=== PATIENT | male | born 1940 | race Caucasian/White ===

== ENCOUNTER 2016-12-31 21:21 | Emergency (ER) | payer OTHER ==
[~2016-12-31] VITALS: Ht 172.7 cm; Wt 134.8 kg
[~2016-12-31 21:21] MED LIST: ASPIR 8181 M1 PO; ATARAX,VISTARIL25 MG PO; ATENOLOL50 MG PO; ATORVASTATIN; BENTYL20 MG PO; BUSPAR5 MG PO; BUSPIRONE HCL5 MG PO; CARDURA4 MG PO; CATAPRES0.3 MG PO; CHLORTHALIDONE25 MG; CHLORTHALIDONE25 MG PO; CLONIDINE HCL0.3 MG; CLONIDINE HCL0.3 MG PO; COUMADIN PO; COUMADIN2.5 MG PO; COUMADIN4 MG PO; COUMADIN7.5 MG PO; CYMBALTA60 MG PO; Cardura PO; Catapres PO; Coumadin,Jantoven PO; DOXAZOSIN MESYLA4 MG; DOXAZOSIN MESYLA4 MG PO; ERGOCALCIF50000 UNIT PO; FINASTERIDE5 MG; FINASTERIDE5 MG PO; FLUOXETINE HCL20 MG; HUMALOG100 UNIT/1 SC; HUMALOG100 UNIT/2 SQ; HYDROCODON-ACE1 EAC7; HYDROXYZINE PAM25 MG PO; HYGROTON25 MG PO; JANTOVEN1 MG PO; Keflex PO; LANTUS (UNITS)1 UNIT SC; LANTUS 10100 UNITS/ SC; LANTUS 3 M100 UNITS1; LANTUS 3 M100 UNITS1 SC; LASIX40 MG PO; LIPITOR20 MG PO; LISINOPRIL10 MG; LISINOPRIL10 MG PO; METOPROLOL SUCC25 MG PO; NITROSTAT0.4 MG SL; NON-ASPIRIN PA325 MG PO; NOVOLOG FLEXPEN; NOVOLOG PE100 UNITS/ SC; PRINIVIL10 MG PO; PRINIVIL20 MG PO; PROAIR HFA8.5 GM; PROSCAR5 MG PO; PROZAC10 MG PO; PROZAC20 MG PO; PROzac PO; Proscar PO; Pyridoxine,Vitamin B PO; RISPERDAL0.5 MG PO; RISPERIDONE0.5 MG PO; ROCALTROL0.25 MCG PO; SILVADENE20 GM TP; ST. JOSEPH ASPI81 MG PO; TOPROL XL25 MG PO; TRAMADOL HCL50 MG PO; TYLENOL REGULA325 MG PO; ULTRAM50 MG PO; VICODIN 5-3001 EACH PO; VITAMIN B-6 PO; VITAMIN B-6200 MG PO; VITAMIN B6; VITAMIN B6 PO; WARFARIN SODIU2.5 MG PO; ZESTRIL10 MG PO; ZESTRIL20 MG PO; Zestril,Prinivil PO
[2016-12-31 22:05] LABS: HEMATOCRIT 33.6 % (38.0-50.0); MCH 30.7 PG (29.0-34.0); MCHC 32.4 G/DL (30.0-36.0); MCV 94.6 FL (86-99); PLATELET COUNT 164 K/uL (156-360); RBC DIS.WIDTH-CV 13.5 % (11.8-14.6); RBC DIS.WIDTH-SD 47.8 % (39-53); RED BLOOD COUNT 3.55 M/uL (4.00-5.50); WHITE BLOOD COUNT 7.6 K/uL (4.1-10.2)
[2016-12-31 22:15] LABS: CHLORIDE 107 mEq/L (99-109); SODIUM 141 mEq/L (136-147)
[2016-12-31 22:17] LABS: GLUCOSE 180 mg/dL (70-99)
[2016-12-31 22:18] LABS: ANION GAP 8 MEQ/L (2-14)
[2016-12-31 22:21] LABS: GFR ESTIMATE (CALCULATED) 42 mL/min/
[2016-12-31 22:22] LABS: UREA NITROGEN (BUN) 27 mg/dL (9-23)
[2016-12-31 22:35] LABS: PROTHROMBIN TIME 78.3 (9.2-11.2)
[2016-12-31 22:37] LABS: INTER. NORMALIZED RATIO 7.2
[2016-12-31 23:53] VITALS: BP 148/60
== END 2016-12-31 23:53 | disposition home or self-care (01) ==
LOC: EME 21:21
PROVIDERS: Emergency Medicine
DX: R79.1 Abnormal coagulation profile (principal); E11.9 Type 2 diabetes mellitus without complications; E78.5 Hyperlipidemia, unspecified; I10 Essential (primary) hypertension; Z86.718 Personal history of other venous thrombosis and embolism; Z86.711 Personal history of pulmonary embolism; Z79.4 Long term (current) use of insulin; Z79.01 Long term (current) use of anticoagulants; Z79.82 Long term (current) use of aspirin; Z87.891 Personal history of nicotine dependence
CPT/HCPCS: 80048; 85027; 85610; 99281; 99284

== ENCOUNTER 2017-01-03 13:53 | Emergency (ER) | payer OTHER ==
[~2017-01-03] VITALS: Ht 182.9 cm; Wt 129.1 kg
[2017-01-03 14:25] LABS: HEMATOCRIT 36.1 % (38.0-50.0); MCH 30.4 PG (29.0-34.0); MCHC 31.9 G/DL (30.0-36.0); MCV 95.5 FL (86-99); MEAN PLAT.VOLUME 9.3 uM^3 (9.0-12.4); PLATELET COUNT 178 K/uL (156-360); RBC DIS.WIDTH-CV 13.7 % (11.8-14.6); RBC DIS.WIDTH-SD 48.3 % (39-53); RED BLOOD COUNT 3.78 M/uL (4.00-5.50); WHITE BLOOD COUNT 7.8 K/uL (4.1-10.2)
[2017-01-03 14:36] LABS: CHLORIDE 105 mEq/L (99-109); POTASSIUM 4.3 mEq/L (3.7-5.4); SODIUM 142 mEq/L (136-147)
[2017-01-03 14:38] LABS: GLUCOSE 169 mg/dL (70-99); PTT 28.6 (25-32)
[2017-01-03 14:40] LABS: ANION GAP 9 MEQ/L (2-14); INTER. NORMALIZED RATIO 1.5; PROTHROMBIN TIME 15.6 (9.2-11.2)
[2017-01-03 14:42] LABS: GFR ESTIMATE (CALCULATED) 39 mL/min/
[2017-01-03 14:43] LABS: UREA NITROGEN (BUN) 27 mg/dL (9-23)
[2017-01-03] MEDS ORDERED: MYCOSTATIN15 GM PO (15:03)
[2017-01-03 15:17] VITALS: BP 121/84
== END 2017-01-03 15:18 | disposition home or self-care (01) ==
LOC: EME 13:53
PROVIDERS: Emergency Medicine
DX: R21 Rash and other nonspecific skin eruption (principal); L29.9 Pruritus, unspecified; Z79.01 Long term (current) use of anticoagulants; G89.29 Other chronic pain; E11.9 Type 2 diabetes mellitus without complications; E78.5 Hyperlipidemia, unspecified; I10 Essential (primary) hypertension; Z87.442 Personal history of urinary calculi; Z86.718 Personal history of other venous thrombosis and embolism
CPT/HCPCS: 80048; 85027; 85610; 85730; 99281; 99285

== ENCOUNTER 2017-06-22 21:25 | Inpatient (IN) | payer OTHER ==
[~2017-06-22] VITALS: Ht 180.3 cm; Wt 128.6 kg
[~2017-06-22 21:25] MED LIST changes: +MYCOSTATIN15 GM PO
[2017-06-22 22:43] LABS: HEMATOCRIT 35.8 % (38.0-50.0); MCH 30.5 PG (29.0-34.0); MCHC 32.4 G/DL (30.0-36.0); MCV 94.2 FL (86-99); MEAN PLAT.VOLUME 10.1 uM^3 (9.0-12.4); PLATELET COUNT 239 K/uL (156-360); RBC DIS.WIDTH-CV 13.4 % (11.8-14.6); RBC DIS.WIDTH-SD 46.5 % (39-53); WHITE BLOOD COUNT 6.3 K/uL (4.1-10.2)
[2017-06-22 22:47] LABS: INTER. NORMALIZED RATIO 1.4; PROTHROMBIN TIME 15.8 SEC (10.2-12.9)
[2017-06-22 22:48] LABS: CHLORIDE 106 mEq/L (99-109); POTASSIUM 4.5 mEq/L (3.7-5.4); SODIUM 141 mEq/L (136-147)
[2017-06-22 22:49] LABS: PTT 30.8 SEC (25-37)
[2017-06-22 22:50] LABS: GLUCOSE 139 mg/dL (70-99)
[2017-06-22 22:51] LABS: ANION GAP 7 MEQ/L (2-14)
[2017-06-22 22:52] LABS: TOTAL BILIRUBIN 0.5 mg/dL (0.0-1.0)
[2017-06-22 22:53] LABS: ALKALINE PHOSPHATASE 55 IU/L (3-129)
[2017-06-22 22:54] LABS: GFR ESTIMATE (CALCULATED) 39 mL/min/
[2017-06-22 22:55] LABS: UREA NITROGEN (BUN) 32 mg/dL (9-23)
[2017-06-22 22:57] LABS: LIPASE 32 U/L (1.0-51.0)
[2017-06-22 23:11] LABS: TROP-I INTERPRETATION NEGATIVE; TROPONIN-I 0.04 ng/mL (0.0-0.30)
[2017-06-23 01:18] LABS: ADD MIUA? YES; BILIRUBIN NEGATIVE; BLOOD SMALL; COLOR YELLOW ((YELLOW)); GLUCOSE (STRIP) NEGATIVE; KETONES NEGATIVE; LEUKOCYTES NEGATIVE; NITRITE NEGATIVE; PROTEIN (STRIP) 30; SPECIFIC GRAVITY 1.011 (1.000-1.030); UROBILINOGEN 0.2 MG/DL (0.2-1.0)
[2017-06-23 01:29] LABS: BACTERIA NONE SEEN /HPF; EPITHELIAL CELLS NONE SEEN /HPF; MUCUS NONE SEEN /LPF; RED BLOOD CELLS 0-5 /HPF (0-5); UCUL ADDED? NO; WHITE BLOOD CELLS 0-5 /HPF (0-5)
[2017-06-23 03:44] LABS: POINT-OF-CARE METER ID UU13113702
[2017-06-23 06:19] VITALS: BP 187/81
[2017-06-23 07:10] VITALS: BP 163/69
[2017-06-23 08:32] LABS: POINT-OF-CARE METER ID UU14162513
[2017-06-23] MEDS ORDERED: ELIQUIS5 MG PO (08:58)
[2017-06-23 10:47] VITALS: BP 164/70
[2017-06-23 12:29] LABS: POINT-OF-CARE METER ID UU14162513
[2017-06-23 17:41] LABS: POINT-OF-CARE METER ID UU14162513
[2017-06-23 21:00] VITALS: BP 174/75
[2017-06-23 21:13] LABS: POINT-OF-CARE METER ID UU13113700
[2017-06-23 23:42] VITALS: BP 114/76
[2017-06-24 08:00] VITALS: BP 185/84
[2017-06-24 11:55] VITALS: BP 148/66
[2017-06-24 16:18] VITALS: BP 189/90
[2017-06-24 19:00] VITALS: BP 138/68
[2017-06-24 21:09] LABS: POINT-OF-CARE METER ID UU13113700
[2017-06-25] VITALS (7 sets, daily range): BP systolic 121–167; BP diastolic 59–75
[2017-06-25 08:10] LABS: ANION GAP 5 MEQ/L (2-14); CHLORIDE 100 MEQ/L (99-109); GFR ESTIMATE (CALCULATED) 42 mL/min/; GLUCOSE 172 mg/dL (70-99); POTASSIUM 4.8 MEQ/L (3.7-5.4); SAMPLE HEMOLYSIS CHECK 0; SAMPLE ICTERIC CHECK 0; SAMPLE LIPEMIA CHECK 0; SODIUM 135 MEQ/L (136-147); UREA NITROGEN (BUN) 28 mg/dL (9-23)
[2017-06-25 12:26] LABS: POINT-OF-CARE METER ID UU13113700
[2017-06-25 17:01] LABS: POINT-OF-CARE METER ID UU13113831
[2017-06-25 21:39] LABS: POINT-OF-CARE METER ID UU14208750
[2017-06-26 04:09] VITALS: BP 126/63
[2017-06-26 06:09] LABS: POINT-OF-CARE METER ID UU14208750
[2017-06-26 07:30] VITALS: BP 171/69
[2017-06-26 07:38] LABS: HEMATOCRIT 37.1 % (38.0-50.0); MCH 31.9 PG (29.0-34.0); MCHC 32.9 G/DL (30.0-36.0); MCV 96.9 FL (86-99); PLATELET COUNT 217 K/uL (156-360); RBC DIS.WIDTH-CV 13.5 % (11.8-14.6); RBC DIS.WIDTH-SD 48.4 % (39-53); RED BLOOD COUNT 3.83 M/uL (4.00-5.50); WHITE BLOOD COUNT 5.7 K/uL (4.1-10.2)
[2017-06-26 08:08] LABS: ANION GAP 6 MEQ/L (2-14); CHLORIDE 100 MEQ/L (99-109); GFR ESTIMATE (CALCULATED) 35 mL/min/; GLUCOSE 126 mg/dL (70-99); POTASSIUM 4.9 MEQ/L (3.7-5.4); SAMPLE HEMOLYSIS CHECK 0; SAMPLE ICTERIC CHECK 0; SAMPLE LIPEMIA CHECK 0; SODIUM 139 MEQ/L (136-147); UREA NITROGEN (BUN) 35 mg/dL (9-23)
[2017-06-26 11:20] VITALS: BP 142/66
[2017-06-26 11:33] LABS: POINT-OF-CARE METER ID UU14162508
[2017-06-26] MEDS ORDERED: TAMSULOSIN HCL0.4 MG PO (12:07)
[2017-06-26] MEDS ORDERED: HYGROTON25 MG PO (12:07)
[2017-06-26] MEDS ORDERED: LEVEMIR100 UNIT/2 SC (12:07)
[2017-06-26] MEDS ORDERED: NOVOLOG PE100 UNITS/ SC (12:07)
[2017-06-26 15:32] VITALS: BP 134/63
[2017-06-26 16:14] LABS: POINT-OF-CARE METER ID UU14162508
== END 2017-06-26 20:05 | DRG 305 ==
LOC: EME 21:25 → EDOF 06-23 05:14 → 5WEST 06-23 05:14 → EDOF 06-23 05:14 → ENRESERV 06-23 05:17 → 5WEST 06-23 06:05 → ENRESERV 06-23 14:19 → CANRESERV 06-23 14:19 → 5WEST 06-24 07:46 → ENRESERV 06-25 16:20 → 2EAST 06-25 20:20
PROVIDERS: Emergency Medicine; Hospitalist; Pediatrics; Physician Assistant
DX: I16.0 Hypertensive urgency (principal); I66.9 Occlusion and stenosis of unspecified cerebral artery; I74.9 Embolism and thrombosis of unspecified artery; I48.0 Paroxysmal atrial fibrillation; R33.8 Other retention of urine; I27.2 Other secondary pulmonary hypertension; E78.5 Hyperlipidemia, unspecified; E11.65 Type 2 diabetes mellitus with hyperglycemia; E11.40 Type 2 diabetes mellitus with diabetic neuropathy, unspecified; Z68.41 Body mass index [BMI] 40.0-44.9, adult; I12.9 Hypertensive chronic kidney disease with stage 1 through stage 4 chronic kidney disease, or unspecified chronic kidney disease; E11.22 Type 2 diabetes mellitus with diabetic chronic kidney disease; N18.3 Chronic kidney disease, stage 3 (moderate); N40.1 Benign prostatic hyperplasia with lower urinary tract symptoms; E66.01 Morbid (severe) obesity due to excess calories; J32.0 Chronic maxillary sinusitis; G47.33 Obstructive sleep apnea (adult) (pediatric); I65.21 Occlusion and stenosis of right carotid artery; N28.1 Cyst of kidney, acquired; K57.90 Diverticulosis of intestine, part unspecified, without perforation or abscess without bleeding; I87.2 Venous insufficiency (chronic) (peripheral); I87.8 Other specified disorders of veins; Z79.01 Long term (current) use of anticoagulants; Z79.4 Long term (current) use of insulin; Z79.82 Long term (current) use of aspirin; Z79.899 Other long term (current) drug therapy; Z85.828 Personal history of other malignant neoplasm of skin; Z85.841 Personal history of malignant neoplasm of brain; Z86.711 Personal history of pulmonary embolism; Z86.718 Personal history of other venous thrombosis and embolism; Z87.442 Personal history of urinary calculi; Z87.891 Personal history of nicotine dependence; Z91.19 Patient's noncompliance with other medical treatment and regimen; Z91.5 Personal history of self-harm
CPT/HCPCS: 70450; 70496; 70498; 74176; 80053; 80069; 81003; 82948; 83605; 83690; 84484; 85027; 85610; 85730; 86850; 86900; 86901; 93005; 97530 GO; 99281; 99285; G8978 GP CM; G8979 GP CL; G8987 CK; G8988 GO CJ; J1815; J2270; J2405; J3010; J7030

== ENCOUNTER 2017-08-16 22:15 | Emergency (ER) | payer OTHER ==
[~2017-08-16] VITALS: Ht 180.3 cm; Wt 124.5 kg
[~2017-08-16 22:15] MED LIST changes: +ELIQUIS5 MG PO; +LEVEMIR100 UNIT/2 SC; +TAMSULOSIN HCL0.4 MG PO
[2017-08-16 22:54] LABS: HEMATOCRIT 37.3 % (38.0-50.0); MCHC 32.7 G/DL (30.0-36.0); MCV 91.6 FL (86-99); MEAN PLAT.VOLUME 9.7 uM^3 (9.0-12.4); PLATELET COUNT 180 K/uL (156-360); RBC DIS.WIDTH-CV 12.9 % (11.8-14.6); RBC DIS.WIDTH-SD 43.5 % (39-53); RED BLOOD COUNT 4.07 M/uL (4.00-5.50); WHITE BLOOD COUNT 8.7 K/uL (4.1-10.2)
[2017-08-16 23:04] LABS: CHLORIDE 106 mEq/L (99-109); INTER. NORMALIZED RATIO 1.6; POTASSIUM 4.4 mEq/L (3.7-5.4); PROTHROMBIN TIME 18.1 SEC (10.2-12.9); SODIUM 139 mEq/L (136-147)
[2017-08-16 23:05] LABS: GLUCOSE 343 mg/dL (70-99)
[2017-08-16 23:07] LABS: ANION GAP 8 MEQ/L (2-14); PTT 32.2 SEC (25-37)
[2017-08-16 23:09] LABS: GFR ESTIMATE (CALCULATED) 39 mL/min/
[2017-08-16 23:10] LABS: UREA NITROGEN (BUN) 35 mg/dL (9-23)
[2017-08-17 00:05] LABS: ADD MIUA? NO; BILIRUBIN NEGATIVE; BLOOD NEGATIVE; COLOR YELLOW ((YELLOW)); GLUCOSE (STRIP) >=500; KETONES NEGATIVE; LEUKOCYTES NEGATIVE; NITRITE NEGATIVE; PROTEIN (STRIP) 30; SPECIFIC GRAVITY 1.016 (1.000-1.030); UCUL ADDED? NO; UROBILINOGEN 0.2 MG/DL (0.2-1.0)
[2017-08-17 02:25] VITALS: BP 178/72
[2017-08-17] MEDS ORDERED: XARELTO20 MG PO (19:15)
== END 2017-08-17 02:25 | disposition home or self-care (01) ==
LOC: EME → EDBD 22:15 → EME 22:15
PROVIDERS: Emergency Medicine
DX: S70.01XA Contusion of right hip, initial encounter (principal); S80.02XA Contusion of left knee, initial encounter; S09.90XA Unspecified injury of head, initial encounter; E11.65 Type 2 diabetes mellitus with hyperglycemia; W18.30XA Fall on same level, unspecified, initial encounter; I12.9 Hypertensive chronic kidney disease with stage 1 through stage 4 chronic kidney disease, or unspecified chronic kidney disease; E11.22 Type 2 diabetes mellitus with diabetic chronic kidney disease; N18.9 Chronic kidney disease, unspecified; I48.91 Unspecified atrial fibrillation; Z79.01 Long term (current) use of anticoagulants; Z79.4 Long term (current) use of insulin; Z86.718 Personal history of other venous thrombosis and embolism; E78.5 Hyperlipidemia, unspecified; F32.9 Major depressive disorder, single episode, unspecified; F41.9 Anxiety disorder, unspecified; Z88.0 Allergy status to penicillin; Z87.891 Personal history of nicotine dependence
CPT/HCPCS: 70450; 73502; 73562; 73564; 80048; 81003; 85027; 85610; 85730; 93005; J7030

== ENCOUNTER 2017-08-17 16:32 | Inpatient (IN) | payer OTHER ==
[~2017-08-17] VITALS: Ht 182.9 cm; Wt 136.5 kg
[2017-08-17 17:21] LABS: HEMATOCRIT 39.6 % (38.0-50.0); MCHC 33.6 G/DL (30.0-36.0); MCV 89.2 FL (86-99); MEAN PLAT.VOLUME 9.9 uM^3 (9.0-12.4); PLATELET COUNT 190 K/uL (156-360); RBC DIS.WIDTH-SD 42.4 % (39-53); RED BLOOD COUNT 4.44 M/uL (4.00-5.50); WHITE BLOOD COUNT 10.5 K/uL (4.1-10.2)
[2017-08-17 17:29] LABS: CHLORIDE 106 mEq/L (99-109); POTASSIUM 4.3 mEq/L (3.7-5.4); SODIUM 139 mEq/L (136-147)
[2017-08-17 17:31] LABS: GLUCOSE 236 mg/dL (70-99)
[2017-08-17 17:32] LABS: ANION GAP 10 MEQ/L (2-14)
[2017-08-17 17:33] LABS: TOTAL BILIRUBIN 0.7 mg/dL (0.0-1.0)
[2017-08-17 17:34] LABS: ALKALINE PHOSPHATASE 56 IU/L (3-129)
[2017-08-17 17:35] LABS: GFR ESTIMATE (CALCULATED) 48 mL/min/
[2017-08-17 17:36] LABS: UREA NITROGEN (BUN) 25 mg/dL (9-23)
[2017-08-17 18:26] LABS: C-REACTIVE PROTEIN 8.4 MG/L (0-10)
[2017-08-17] MEDS ORDERED: XARELTO20 MG PO (19:15)
[2017-08-17 23:41] LABS: POINT-OF-CARE METER ID UU13113774
[2017-08-18] VITALS (7 sets, daily range): BP systolic 119–210; BP diastolic 59–80
[2017-08-18 06:31] LABS: POINT-OF-CARE METER ID UU13113725
[2017-08-18 11:43] LABS: POINT-OF-CARE METER ID UU13113725
[2017-08-18 17:02] LABS: POINT-OF-CARE METER ID UU13113774
[2017-08-18 20:59] LABS: POINT-OF-CARE METER ID UU13113774
[2017-08-19 03:42] VITALS: BP 97/50
[2017-08-19 05:47] LABS: POINT-OF-CARE METER ID UU13113774
[2017-08-19 06:19] LABS: HEMATOCRIT 33.6 % (38.0-50.0); MCH 30.4 PG (29.0-34.0); MCV 92.1 FL (86-99); MEAN PLAT.VOLUME 10.3 uM^3 (9.0-12.4); PLATELET COUNT 167 K/uL (156-360); RBC DIS.WIDTH-CV 13.6 % (11.8-14.6); RED BLOOD COUNT 3.65 M/uL (4.00-5.50); WHITE BLOOD COUNT 9.6 K/uL (4.1-10.2)
[2017-08-19 06:37] LABS: ANION GAP 8 MEQ/L (2-14); CHLORIDE 102 MEQ/L (99-109); GLUCOSE 194 mg/dL (70-99); POTASSIUM 4.9 MEQ/L (3.7-5.4); SAMPLE HEMOLYSIS CHECK 0; SAMPLE ICTERIC CHECK 0; SAMPLE LIPEMIA CHECK 0; SODIUM 136 MEQ/L (136-147)
[2017-08-19 06:40] LABS: GFR ESTIMATE (CALCULATED) 33 mL/min/; UREA NITROGEN (BUN) 38 mg/dL (9-23)
[2017-08-19 07:40] VITALS: BP 115/55
[2017-08-19 11:35] LABS: POINT-OF-CARE METER ID UU13113774
[2017-08-19 15:12] VITALS: BP 99/47
[2017-08-19 15:31] VITALS: BP 102/60
[2017-08-19 15:59] LABS: POINT-OF-CARE METER ID UU13113774
[2017-08-19 20:38] VITALS: BP 145/62
[2017-08-19 21:30] VITALS: BP 115/64
[2017-08-19 21:31] LABS: POINT-OF-CARE METER ID UU13113774
[2017-08-20] VITALS (8 sets, daily range): BP systolic 111–148; BP diastolic 59–92
[2017-08-20 05:26] LABS: EOSINOPHIL (%) 5.6 % (0-5); EOSINOPHIL COUNT 0.6 K/uL (0-0.3); HEMATOCRIT 32.9 % (38.0-50.0); IMMATURE GRANULOCYTE (%) 0.2 % (0.0-0.7); INSTRUMENT ABS NEUTROPHIL CT 8.1 K/uL; LYMPHOCYTE COUNT 0.8 K/uL (1.0-2.8); MCH 30.7 PG (29.0-34.0); MCHC 33.4 G/DL (30.0-36.0); MCV 91.9 FL (86-99); MEAN PLAT.VOLUME 10.4 uM^3 (9.0-12.4); MONOCYTE (%) 7.7 % (3-12); MONOCYTE COUNT 0.8 K/uL (0-0.8); NEUTROPHIL (%) 78.4 % (45-76); NEUTROPHIL COUNT 8.1 K/uL (1.8-6.4); PLATELET COUNT 159 K/uL (156-360); RBC DIS.WIDTH-CV 13.3 % (11.8-14.6); RBC DIS.WIDTH-SD 45.1 % (39-53); RED BLOOD COUNT 3.58 M/uL (4.00-5.50); WHITE BLOOD COUNT 10.3 K/uL (4.1-10.2)
[2017-08-20 05:49] LABS: ANION GAP 6 MEQ/L (2-14); CHLORIDE 100 MEQ/L (99-109); GFR ESTIMATE (CALCULATED) 37 mL/min/; GLUCOSE 209 mg/dL (70-99); POTASSIUM 5.3 MEQ/L (3.7-5.4); SAMPLE HEMOLYSIS CHECK 0; SAMPLE ICTERIC CHECK 0; SAMPLE LIPEMIA CHECK 0; SODIUM 132 MEQ/L (136-147); UREA NITROGEN (BUN) 46 mg/dL (9-23); URIC ACID 7.9 mg/dL (3.1-9.2)
[2017-08-20 06:00] LABS: ALKALINE PHOSPHATASE 45 IU/L (3-129); ANION GAP 7 MEQ/L (2-14); CHLORIDE 102 MEQ/L (99-109); GFR ESTIMATE (CALCULATED) 35 mL/min/; GLUCOSE 213 mg/dL (70-99); POTASSIUM 5.3 MEQ/L (3.7-5.4); SAMPLE HEMOLYSIS CHECK 0; SAMPLE ICTERIC CHECK 0; SAMPLE LIPEMIA CHECK 0; SODIUM 134 MEQ/L (136-147); TOTAL BILIRUBIN 0.5 MG/DL (0.0-1.0); UREA NITROGEN (BUN) 50 mg/dL (9-23)
[2017-08-20 06:30] LABS: POINT-OF-CARE METER ID UU13113774
[2017-08-20 09:53] LABS: INTACT PARATHYROID HORMONE 77 pg/mL (10-69)
[2017-08-20 10:22] LABS: LYME DISEASE SEROLOGY SCREEN NEGATIVE (NEGATIVE)
[2017-08-20 11:31] LABS: POINT-OF-CARE METER ID UU13113774
[2017-08-20 16:56] LABS: POINT-OF-CARE METER ID UU13113774
[2017-08-20 21:15] LABS: POINT-OF-CARE METER ID UU13113725
[2017-08-21 03:26] VITALS: BP 148/65
[2017-08-21 06:12] LABS: POINT-OF-CARE METER ID UU13113774
[2017-08-21 06:30] LABS: ANION GAP 7 MEQ/L (2-14); CHLORIDE 106 MEQ/L (99-109); GFR ESTIMATE (CALCULATED) 35 mL/min/; GLUCOSE 202 mg/dL (70-99); POTASSIUM 5.4 MEQ/L (3.7-5.4); SAMPLE HEMOLYSIS CHECK 0; SAMPLE ICTERIC CHECK 0; SAMPLE LIPEMIA CHECK 0; UREA NITROGEN (BUN) 51 mg/dL (9-23)
[2017-08-21 06:49] LABS: SODIUM 140 MEQ/L (136-147)
[2017-08-21 07:46] VITALS: BP 170/73
[2017-08-21 10:52] LABS: POINT-OF-CARE METER ID UU13113725
[2017-08-21 10:56] VITALS: BP 146/63
[2017-08-21 16:42] VITALS: BP 192/68
[2017-08-21 16:52] LABS: POINT-OF-CARE METER ID UU13113774
[2017-08-21 22:33] LABS: POINT-OF-CARE METER ID UU13113774
[2017-08-21 22:53] VITALS: BP 138/63
[2017-08-22 06:06] LABS: POINT-OF-CARE METER ID UU13113774
[2017-08-22 06:53] LABS: EOSINOPHIL (%) 8.2 % (0-5); EOSINOPHIL COUNT 0.7 K/uL (0-0.3); HEMATOCRIT 34.3 % (38.0-50.0); IMMATURE GRANULOCYTE (%) 0.4 % (0.0-0.7); INSTRUMENT ABS NEUTROPHIL CT 6.2 K/uL; LYMPHOCYTE COUNT 1.2 K/uL (1.0-2.8); MCH 29.8 PG (29.0-34.0); MCHC 32.4 G/DL (30.0-36.0); MONOCYTE COUNT 0.8 K/uL (0-0.8); NEUTROPHIL (%) 68.8 % (45-76); NEUTROPHIL COUNT 6.2 K/uL (1.8-6.4); PLATELET COUNT 192 K/uL (156-360); RBC DIS.WIDTH-CV 13.4 % (11.8-14.6); RBC DIS.WIDTH-SD 45.6 % (39-53); RED BLOOD COUNT 3.73 M/uL (4.00-5.50)
[2017-08-22 07:15] LABS: ANION GAP 8 MEQ/L (2-14); CHLORIDE 103 MEQ/L (99-109); GFR ESTIMATE (CALCULATED) 42 mL/min/; GLUCOSE 178 mg/dL (70-99); SAMPLE HEMOLYSIS CHECK 0; SAMPLE ICTERIC CHECK 0; SAMPLE LIPEMIA CHECK 0; SODIUM 139 MEQ/L (136-147); UREA NITROGEN (BUN) 52 mg/dL (9-23)
[2017-08-22 07:20] LABS: ALKALINE PHOSPHATASE 40 IU/L (3-129); ANION GAP 9 MEQ/L (2-14); CHLORIDE 104 MEQ/L (99-109); GFR ESTIMATE (CALCULATED) 39 mL/min/; GLUCOSE 174 mg/dL (70-99); POTASSIUM 4.8 MEQ/L (3.7-5.4); SAMPLE HEMOLYSIS CHECK 0; SAMPLE ICTERIC CHECK 0; SAMPLE LIPEMIA CHECK 0; SODIUM 140 MEQ/L (136-147); TOTAL BILIRUBIN 0.6 MG/DL (0.0-1.0); UREA NITROGEN (BUN) 51 mg/dL (9-23)
[2017-08-22 08:01] VITALS: BP 148/67
[2017-08-22 12:19] LABS: POINT-OF-CARE METER ID UU13113774
[2017-08-22 15:25] VITALS: BP 147/64
[2017-08-22 20:20] LABS: POINT-OF-CARE METER ID UU13113675
[2017-08-22 22:00] VITALS: BP 111/75
[2017-08-22 23:00] VITALS: BP 110/47
[2017-08-22 23:10] LABS: POINT-OF-CARE METER ID UU13113731; POINT-OF-CARE USER ID LABHNS84
[2017-08-23] VITALS (24 sets, daily range): BP systolic 92–150; BP diastolic 42–67
[2017-08-23 05:05] LABS: EOSINOPHIL (%) 0.1 % (0-5); HEMATOCRIT 32.7 % (38.0-50.0); IMMATURE GRANULOCYTE (%) 0.4 % (0.0-0.7); INSTRUMENT ABS NEUTROPHIL CT 8.4 K/uL; LYMPHOCYTE COUNT 0.3 K/uL (1.0-2.8); MCH 29.8 PG (29.0-34.0); MCHC 32.7 G/DL (30.0-36.0); MCV 91.1 FL (86-99); MEAN PLAT.VOLUME 9.9 uM^3 (9.0-12.4); MONOCYTE (%) 4.4 % (3-12); MONOCYTE COUNT 0.4 K/uL (0-0.8); NEUTROPHIL (%) 91.8 % (45-76); NEUTROPHIL COUNT 8.4 K/uL (1.8-6.4); PLATELET COUNT 193 K/uL (156-360); RBC DIS.WIDTH-CV 13.2 % (11.8-14.6); RBC DIS.WIDTH-SD 44.2 % (39-53); RED BLOOD COUNT 3.59 M/uL (4.00-5.50); WHITE BLOOD COUNT 9.1 K/uL (4.1-10.2)
[2017-08-23 05:17] LABS: CHLORIDE 105 mEq/L (99-109); POTASSIUM 5.7 mEq/L (3.7-5.4); SODIUM 136 mEq/L (136-147)
[2017-08-23 05:21] LABS: ANION GAP 8 MEQ/L (2-14)
[2017-08-23 05:23] LABS: ALKALINE PHOSPHATASE 44 IU/L (3-129); GFR ESTIMATE (CALCULATED) 35 mL/min/
[2017-08-23 05:24] LABS: UREA NITROGEN (BUN) 61 mg/dL (9-23)
[2017-08-23 05:27] LABS: GLUCOSE 360 mg/dL (70-99); TOTAL BILIRUBIN 0.3 mg/dL (0.0-1.0)
[2017-08-23 07:32] LABS: METH RESISTANT S AUREUS PCR NEGATIVE (NEGATIVE); PROBE CHECK PASS; SPECIMEN PROCESSING CONTROL PASS
[2017-08-23 12:05] LABS: POINT-OF-CARE METER ID UU13113731
[2017-08-23 16:31] LABS: CREATINE KINASE 105 IU/L (1-294)
[2017-08-23 17:47] LABS: POINT-OF-CARE METER ID UU13113731
[2017-08-23 23:42] LABS: POINT-OF-CARE METER ID UU14314082
[2017-08-24] VITALS (24 sets, daily range): BP systolic 102–195; BP diastolic 43–101
[2017-08-24 05:02] LABS: CHLORIDE 109 mEq/L (99-109); SODIUM 142 mEq/L (136-147)
[2017-08-24 05:04] LABS: GLUCOSE 210 mg/dL (70-99)
[2017-08-24 05:06] LABS: ANION GAP 8 MEQ/L (2-14)
[2017-08-24 05:08] LABS: GFR ESTIMATE (CALCULATED) 42 mL/min/
[2017-08-24 05:09] LABS: UREA NITROGEN (BUN) 58 mg/dL (9-23)
[2017-08-24 05:32] LABS: POINT-OF-CARE METER ID UU14314083
[2017-08-24 11:54] LABS: POINT-OF-CARE METER ID UU14174217
[2017-08-24 15:41] LABS: POINT-OF-CARE METER ID UU14174217
[2017-08-24 17:35] LABS: POINT-OF-CARE METER ID UU14174217
[2017-08-24 21:30] LABS: POINT-OF-CARE METER ID UU14174217
[2017-08-25] VITALS (18 sets, daily range): BP systolic 113–183; BP diastolic 56–135
[2017-08-25 01:55] LABS: POINT-OF-CARE METER ID UU13113748
[2017-08-25 05:28] LABS: BASOPHIL COUNT 0.1 K/uL (0-0.1); EOSINOPHIL (%) 3.2 % (0-5); EOSINOPHIL COUNT 0.3 K/uL (0-0.3); HEMATOCRIT 32.9 % (38.0-50.0); IMMATURE GRANULOCYTE (%) 0.7 % (0.0-0.7); IMMATURE GRANULOCYTE COUNT 0.1 K/uL; INSTRUMENT ABS NEUTROPHIL CT 8.4 K/uL; LYMPHOCYTE COUNT 0.7 K/uL (1.0-2.8); MCH 29.3 PG (29.0-34.0); MCHC 31.9 G/DL (30.0-36.0); MCV 91.9 FL (86-99); MEAN PLAT.VOLUME 9.9 uM^3 (9.0-12.4); MONOCYTE (%) 10.4 % (3-12); MONOCYTE COUNT 1.1 K/uL (0-0.8); NEUTROPHIL COUNT 8.4 K/uL (1.8-6.4); PLATELET COUNT 223 K/uL (156-360); RBC DIS.WIDTH-CV 13.9 % (11.8-14.6); RBC DIS.WIDTH-SD 47.2 % (39-53); RED BLOOD COUNT 3.58 M/uL (4.00-5.50); WHITE BLOOD COUNT 10.7 K/uL (4.1-10.2)
[2017-08-25 06:12] LABS: ANION GAP 9 MEQ/L (2-14); CHLORIDE 110 MEQ/L (99-109); GFR ESTIMATE (CALCULATED) 53 mL/min/; GLUCOSE 136 mg/dL (70-99); POTASSIUM 4.9 MEQ/L (3.7-5.4); SAMPLE HEMOLYSIS CHECK 0; SAMPLE ICTERIC CHECK 0; SAMPLE LIPEMIA CHECK 0; SODIUM 145 MEQ/L (136-147); UREA NITROGEN (BUN) 44 mg/dL (9-23)
[2017-08-25 06:27] LABS: POINT-OF-CARE METER ID UU13113748
[2017-08-25 10:31] LABS: POINT-OF-CARE METER ID UU13113748
[2017-08-25 14:47] LABS: POINT-OF-CARE METER ID UU13113748
[2017-08-25 18:51] LABS: POINT-OF-CARE METER ID UU14208753
[2017-08-25 22:28] LABS: POINT-OF-CARE METER ID UU14208753
[2017-08-26 02:23] LABS: POINT-OF-CARE METER ID UU14117124
[2017-08-26 04:18] VITALS: BP 180/78
[2017-08-26 06:24] LABS: POINT-OF-CARE METER ID UU14117124
[2017-08-26 07:33] LABS: ANION GAP 9 MEQ/L (2-14); CHLORIDE 110 MEQ/L (99-109); GFR ESTIMATE (CALCULATED) 57 mL/min/; GLUCOSE 196 mg/dL (70-99); POTASSIUM 4.8 MEQ/L (3.7-5.4); SAMPLE HEMOLYSIS CHECK 0; SAMPLE ICTERIC CHECK 0; SAMPLE LIPEMIA CHECK 0; SODIUM 146 MEQ/L (136-147); UREA NITROGEN (BUN) 45 mg/dL (9-23)
[2017-08-26 08:11] VITALS: BP 133/84
[2017-08-26 10:29] LABS: POINT-OF-CARE METER ID UU14117124
[2017-08-26 11:56] VITALS: BP 139/78
[2017-08-26 14:27] LABS: POINT-OF-CARE METER ID UU14117124
[2017-08-26 15:08] VITALS: BP 147/86
[2017-08-26 17:47] LABS: POINT-OF-CARE METER ID UU14149397
[2017-08-26 19:51] VITALS: BP 158/69
[2017-08-26 22:05] LABS: POINT-OF-CARE METER ID UU14208753
[2017-08-26 23:37] VITALS: BP 95/42
[2017-08-27 01:45] LABS: POINT-OF-CARE METER ID UU14117124
[2017-08-27 03:51] VITALS: BP 158/68
[2017-08-27 06:54] LABS: POINT-OF-CARE METER ID UU14117124
[2017-08-27 07:01] LABS: BASOPHIL COUNT 0.1 K/uL (0-0.1); EOSINOPHIL (%) 7.5 % (0-5); EOSINOPHIL COUNT 0.8 K/uL (0-0.3); HEMATOCRIT 32.7 % (38.0-50.0); IMMATURE GRANULOCYTE (%) 0.7 % (0.0-0.7); IMMATURE GRANULOCYTE COUNT 0.1 K/uL; INSTRUMENT ABS NEUTROPHIL CT 7.5 K/uL; LYMPHOCYTE COUNT 1.2 K/uL (1.0-2.8); MCHC 32.4 G/DL (30.0-36.0); MCV 92.6 FL (86-99); MEAN PLAT.VOLUME 9.9 uM^3 (9.0-12.4); MONOCYTE (%) 8.4 % (3-12); MONOCYTE COUNT 0.9 K/uL (0-0.8); NEUTROPHIL (%) 71.2 % (45-76); NEUTROPHIL COUNT 7.5 K/uL (1.8-6.4); PLATELET COUNT 254 K/uL (156-360); RBC DIS.WIDTH-CV 13.9 % (11.8-14.6); RBC DIS.WIDTH-SD 46.6 % (39-53); RED BLOOD COUNT 3.53 M/uL (4.00-5.50); WHITE BLOOD COUNT 10.6 K/uL (4.1-10.2)
[2017-08-27 07:21] LABS: ALKALINE PHOSPHATASE 48 IU/L (3-129); ANION GAP 8 MEQ/L (2-14); CHLORIDE 108 MEQ/L (99-109); GFR ESTIMATE (CALCULATED) 53 mL/min/; GLUCOSE 136 mg/dL (70-99); POTASSIUM 4.6 MEQ/L (3.7-5.4); SAMPLE HEMOLYSIS CHECK 0; SAMPLE ICTERIC CHECK 0; SAMPLE LIPEMIA CHECK 0; SODIUM 145 MEQ/L (136-147); TOTAL BILIRUBIN 0.6 MG/DL (0.0-1.0); UREA NITROGEN (BUN) 49 mg/dL (9-23)
[2017-08-27 07:57] VITALS: BP 151/79
[2017-08-27 10:58] LABS: POINT-OF-CARE METER ID UU14117124
[2017-08-27 12:37] VITALS: BP 158/86
[2017-08-27 14:30] LABS: POINT-OF-CARE METER ID UU14208753
[2017-08-27 15:34] VITALS: BP 160/82
[2017-08-27 17:58] LABS: POINT-OF-CARE METER ID UU14208753
[2017-08-27 19:22] VITALS: BP 183/83
[2017-08-27 21:56] LABS: POINT-OF-CARE METER ID UU14117124
[2017-08-27 23:15] VITALS: BP 180/74
[2017-08-28 02:31] LABS: POINT-OF-CARE METER ID UU14188577
[2017-08-28 05:09] VITALS: BP 177/78
[2017-08-28 05:17] LABS: POINT-OF-CARE METER ID UU14188577
[2017-08-28 06:05] LABS: HEMATOCRIT 35.8 % (38.0-50.0); MCH 29.7 PG (29.0-34.0); MCHC 31.8 G/DL (30.0-36.0); MCV 93.2 FL (86-99); MEAN PLAT.VOLUME 9.8 uM^3 (9.0-12.4); PLATELET COUNT 260 K/uL (156-360); RBC DIS.WIDTH-CV 13.6 % (11.8-14.6); RED BLOOD COUNT 3.84 M/uL (4.00-5.50); WHITE BLOOD COUNT 10.9 K/uL (4.1-10.2)
[2017-08-28 06:42] LABS: ALKALINE PHOSPHATASE 50 IU/L (3-129); ANION GAP 11 MEQ/L (2-14); CHLORIDE 106 MEQ/L (99-109); GFR ESTIMATE (CALCULATED) 53 mL/min/; GLUCOSE 163 mg/dL (70-99); POTASSIUM 4.8 MEQ/L (3.7-5.4); SAMPLE HEMOLYSIS CHECK 0; SAMPLE ICTERIC CHECK 0; SAMPLE LIPEMIA CHECK 0; SODIUM 144 MEQ/L (136-147); UREA NITROGEN (BUN) 50 mg/dL (9-23)
[2017-08-28 06:43] LABS: TOTAL BILIRUBIN 0.8 MG/DL (0.0-1.0)
[2017-08-28 11:21] VITALS: BP 174/77
[2017-08-28 13:03] LABS: POINT-OF-CARE METER ID UU13113675
[2017-08-28 15:30] VITALS: BP 171/77
[2017-08-28 16:04] LABS: POINT-OF-CARE METER ID UU14149397
[2017-08-28 19:57] LABS: POINT-OF-CARE METER ID UU14117124
[2017-08-28 21:58] LABS: POINT-OF-CARE METER ID UU14149397
[2017-08-28 23:10] VITALS: BP 132/62
[2017-08-29 02:27] LABS: POINT-OF-CARE METER ID UU14149397
[2017-08-29 03:20] VITALS: BP 165/70
[2017-08-29 06:10] LABS: POINT-OF-CARE METER ID UU14208753
[2017-08-29 07:54] VITALS: BP 134/61
[2017-08-29 10:55] LABS: POINT-OF-CARE METER ID UU14208753
[2017-08-29 11:48] VITALS: BP 143/63
[2017-08-29 14:21] LABS: POINT-OF-CARE METER ID UU14208753
[2017-08-29 15:46] VITALS: BP 158/69
[2017-08-29 18:46] LABS: POINT-OF-CARE METER ID UU14117124
[2017-08-29 20:07] VITALS: BP 131/60
[2017-08-29 23:15] LABS: POINT-OF-CARE METER ID UU14117124
[2017-08-29 23:41] VITALS: BP 143/63
[2017-08-30 02:43] LABS: POINT-OF-CARE METER ID UU14208753
[2017-08-30 04:05] VITALS: BP 170/72
[2017-08-30 06:16] LABS: POINT-OF-CARE METER ID UU14208753
[2017-08-30 11:31] VITALS: BP 132/80
[2017-08-30 11:34] LABS: POINT-OF-CARE METER ID UU14149397
[2017-08-30 15:11] LABS: POINT-OF-CARE METER ID UU14149397
[2017-08-30 16:36] VITALS: BP 145/66
[2017-08-30 17:58] LABS: POINT-OF-CARE METER ID UU14208753
[2017-08-30 19:11] VITALS: BP 188/80
[2017-08-30 21:35] LABS: POINT-OF-CARE METER ID UU14208753
[2017-08-30 23:43] VITALS: BP 179/84
[2017-08-31 02:32] LABS: POINT-OF-CARE METER ID UU14208753
[2017-08-31 03:39] VITALS: BP 158/66
[2017-08-31 06:04] LABS: POINT-OF-CARE METER ID UU14208753
[2017-08-31 06:55] LABS: BASOPHIL COUNT 0.1 K/uL (0-0.1); EOSINOPHIL (%) 2.8 % (0-5); EOSINOPHIL COUNT 0.4 K/uL (0-0.3); HEMATOCRIT 35.2 % (38.0-50.0); IMMATURE GRANULOCYTE (%) 1.1 % (0.0-0.7); IMMATURE GRANULOCYTE COUNT 0.1 K/uL; INSTRUMENT ABS NEUTROPHIL CT 10.5 K/uL; LYMPHOCYTE COUNT 0.9 K/uL (1.0-2.8); MCHC 32.1 G/DL (30.0-36.0); MCV 93.4 FL (86-99); MEAN PLAT.VOLUME 9.9 uM^3 (9.0-12.4); MONOCYTE (%) 5.7 % (3-12); MONOCYTE COUNT 0.7 K/uL (0-0.8); NEUTROPHIL (%) 83.1 % (45-76); NEUTROPHIL COUNT 10.5 K/uL (1.8-6.4); PLATELET COUNT 240 K/uL (156-360); RBC DIS.WIDTH-CV 13.6 % (11.8-14.6); RBC DIS.WIDTH-SD 46.3 % (39-53); RED BLOOD COUNT 3.77 M/uL (4.00-5.50); WHITE BLOOD COUNT 12.6 K/uL (4.1-10.2)
[2017-08-31 07:19] LABS: ALKALINE PHOSPHATASE 72 IU/L (3-129); ANION GAP 6 MEQ/L (2-14); CHLORIDE 106 MEQ/L (99-109); GFR ESTIMATE (CALCULATED) > 59 mL/min/; GLUCOSE 214 mg/dL (70-99); POTASSIUM 4.1 MEQ/L (3.7-5.4); SAMPLE HEMOLYSIS CHECK 0; SAMPLE ICTERIC CHECK 0; SAMPLE LIPEMIA CHECK 0; SODIUM 141 MEQ/L (136-147); UREA NITROGEN (BUN) 42 mg/dL (9-23)
[2017-08-31 07:20] LABS: TOTAL BILIRUBIN 0.3 MG/DL (0.0-1.0)
[2017-08-31 08:10] VITALS: BP 145/68
[2017-08-31] MEDS ORDERED: ZANAFLEX2 M1 GT (08:12)
[2017-08-31] MEDS ORDERED: CLONIDINE HCL0.1 MG GT (08:14)
[2017-08-31] MEDS ORDERED: CLONIDINE1 EAC1 TD (08:14)
[2017-08-31] MEDS ORDERED: LOPRESSOR25 MG GT (08:16)
[2017-08-31] MEDS ORDERED: POLYETHYLENE GL17 GM GT (08:27)
[2017-08-31] MEDS ORDERED: AMLODIPINE BESYL5 MG GT (08:27)
[2017-08-31] MEDS ORDERED: DOCU LIQUI50 MG/5 ML GT (08:27)
[2017-08-31] MEDS ORDERED: GABAPENTIN250 MG/5 M GT (08:27)
[2017-08-31] MEDS ORDERED: CYANOCOBAL1000 MCG/2 IM (08:27)
[2017-08-31] MEDS ORDERED: ONDANSETRON ODT4 MG GT (08:27)
[2017-08-31] MEDS ORDERED: LEVEMIR100 UNIT/2 SC (08:27)
[2017-08-31] MEDS ORDERED: BUSPAR5 MG GT (08:27)
[2017-08-31 11:46] VITALS: BP 154/67
[2017-08-31 12:11] LABS: POINT-OF-CARE METER ID UU14208753
[2017-08-31 14:03] VITALS: BP 154/67
== END 2017-08-31 16:31 | DRG 28 ==
LOC: EME 16:32 → EDOF 19:28 → 5EAST 19:28 → EDOF 19:28 → ENRESERV 19:47 → CANRESERV 19:47 → ENRESERV 21:10 → 5EAST 22:45 → 4WEST 08-18 15:22 → 5EAST 08-18 15:22 → ENRESERV 08-22 08:14 → 5EAST 08-22 19:05 → 4WEST 08-22 21:58 → ENRESERV 08-25 15:06 → CANRESERV 08-25 15:06 → ENRESERV 08-25 16:01 → 3EAST 08-25 18:27
PROVIDERS: Emergency Medicine; Family Medicine; Hospitalist; Internal Medicine; Internal Medicine Critical Care Medicine; Internal Medicine Nephrology; Nurse Practitioner Adult Health; Pediatrics
PROC: 0RG20A0 Fusion of 2 or more Cervical Vertebral Joints with Interbody Fusion Device, Anterior Approach, Anterior Column, Open Approach (ICD-10-PCS; principal; 2017-08-22)
PROC: 0DH63UZ Insertion of Feeding Device into Stomach, Percutaneous Approach (ICD-10-PCS; 2017-08-28)
DX: S14.126A Central cord syndrome at C6 level of cervical spinal cord, initial encounter (principal); G82.50 Quadriplegia, unspecified; S12.500A Unspecified displaced fracture of sixth cervical vertebra, initial encounter for closed fracture; W18.30XA Fall on same level, unspecified, initial encounter; N17.9 Acute kidney failure, unspecified; E87.5 Hyperkalemia; E86.0 Dehydration; R13.10 Dysphagia, unspecified; D51.9 Vitamin B12 deficiency anemia, unspecified; E11.21 Type 2 diabetes mellitus with diabetic nephropathy; E11.22 Type 2 diabetes mellitus with diabetic chronic kidney disease; E11.42 Type 2 diabetes mellitus with diabetic polyneuropathy; E11.51 Type 2 diabetes mellitus with diabetic peripheral angiopathy without gangrene; E11.65 Type 2 diabetes mellitus with hyperglycemia; I12.9 Hypertensive chronic kidney disease with stage 1 through stage 4 chronic kidney disease, or unspecified chronic kidney disease; N18.3 Chronic kidney disease, stage 3 (moderate); N25.81 Secondary hyperparathyroidism of renal origin; M53.2X2 Spinal instabilities, cervical region; M45.9 Ankylosing spondylitis of unspecified sites in spine; M48.10 Ankylosing hyperostosis [Forestier], site unspecified; M48.02 Spinal stenosis, cervical region; I48.0 Paroxysmal atrial fibrillation; I27.20 Pulmonary hypertension, unspecified; R41.82 Altered mental status, unspecified; M48.061 Spinal stenosis, lumbar region without neurogenic claudication; E78.5 Hyperlipidemia, unspecified; N40.1 Benign prostatic hyperplasia with lower urinary tract symptoms; R33.9 Retention of urine, unspecified; R29.6 Repeated falls; I87.2 Venous insufficiency (chronic) (peripheral); I87.8 Other specified disorders of veins; M10.9 Gout, unspecified; M25.78 Osteophyte, vertebrae; G47.33 Obstructive sleep apnea (adult) (pediatric); F41.9 Anxiety disorder, unspecified; F32.9 Major depressive disorder, single episode, unspecified; F17.200 Nicotine dependence, unspecified, uncomplicated; E66.01 Morbid (severe) obesity due to excess calories; Z68.41 Body mass index [BMI] 40.0-44.9, adult; Y92.002 Bathroom of unspecified non-institutional (private) residence as the place of occurrence of the external cause; Z79.01 Long term (current) use of anticoagulants; Z79.4 Long term (current) use of insulin; Z79.82 Long term (current) use of aspirin; Z86.711 Personal history of pulmonary embolism; Z86.718 Personal history of other venous thrombosis and embolism; Z86.73 Personal history of transient ischemic attack (TIA), and cerebral infarction without residual deficits; Z85.828 Personal history of other malignant neoplasm of skin; Z87.442 Personal history of urinary calculi; Z88.0 Allergy status to penicillin; Z91.19 Patient's noncompliance with other medical treatment and regimen; Z23 Encounter for immunization
CPT/HCPCS: 70450; 70551; 71010; 72040; 72052; 72125; 72141; 72146; 72148; 73030; 73060; 73502; 73562; 73564; 73700; 74230; 76000; 80048; 80053; 80069; 81003; 82040 90; 82042 90; 82306; 82550; 82607; 82784 90; 82945; 82948; 83735; 83873 90; 83970; 84157; 84550; 85025; 85027; 85610; 85730; 86140; 86618; 87070; 87205; 87641; 89051; 90686; 92526 GN; 92610 GN; 92611 GN; 93005; 94002; 94003; 94799; 97530 GO; 97530 GP; 99281; 99285; C1713; G0378; J0360; J0690; J1100; J1170; J1200; J1815; J1885; J2060; J2270; J2405; J2704; J2710; J3010; J3420; J7030; S0028

== ENCOUNTER 2017-09-04 07:46 | Emergency (ER) | payer OTHER ==
[~2017-09-04] VITALS: Ht 180.3 cm; Wt 88.5 kg
[~2017-09-04 07:46] MED LIST changes: +AMLODIPINE BESYL5 MG GT; +BUSPAR5 MG GT; +CLONIDINE HCL0.1 MG GT; +CLONIDINE1 EAC1 TD; +CYANOCOBAL1000 MCG/2 IM; +DOCU LIQUI50 MG/5 ML GT; +GABAPENTIN250 MG/5 M GT; +LOPRESSOR25 MG GT; +ONDANSETRON ODT4 MG GT; +POLYETHYLENE GL17 GM GT; +XARELTO20 MG PO; +ZANAFLEX2 M1 GT
[2017-09-04 13:20] VITALS: BP 149/104
== END 2017-09-04 13:23 ==
LOC: EME → EDBD 07:46 → EME 13:23
DX: T85.528A Displacement of other gastrointestinal prosthetic devices, implants and grafts, initial encounter (principal); N40.0 Benign prostatic hyperplasia without lower urinary tract symptoms; E11.40 Type 2 diabetes mellitus with diabetic neuropathy, unspecified; Z87.442 Personal history of urinary calculi; F41.9 Anxiety disorder, unspecified; F32.9 Major depressive disorder, single episode, unspecified; E78.5 Hyperlipidemia, unspecified; Z87.891 Personal history of nicotine dependence; Z88.0 Allergy status to penicillin; Z79.4 Long term (current) use of insulin
CPT/HCPCS: 74000; 99281; 99284; B4087

== ENCOUNTER → 2017-09-06 | Outpatient (CLI) | payer OTHER | LOC: RAD 11:00 | DX: R13.12 Dysphagia, oropharyngeal phase (principal); S12.500D Unspecified displaced fracture of sixth cervical vertebra, subsequent encounter for fracture with routine healing | CPT/HCPCS: 74230; 92611 GN; G8996 GN CL; G8997 GN CL; G8998 GN CL ==

== ENCOUNTER 2017-09-21 18:18 | Inpatient (IN) | payer OTHER ==
[~2017-09-21] VITALS: Ht 180.3 cm; Wt 110.6 kg
[2017-09-21 19:16] LABS: HEMATOCRIT 37.2 % (38.0-50.0); MCH 29.8 PG (29.0-34.0); MCHC 32.8 G/DL (30.0-36.0); MCV 90.7 FL (86-99); PLATELET COUNT 297 K/uL (156-360); RBC DIS.WIDTH-CV 13.6 % (11.8-14.6); RBC DIS.WIDTH-SD 45.1 % (39-53); WHITE BLOOD COUNT 8.7 K/uL (4.1-10.2)
[2017-09-21 19:26] LABS: CHLORIDE 92 mEq/L (99-109); POTASSIUM 4.2 mEq/L (3.7-5.4); SODIUM 139 mEq/L (136-147)
[2017-09-21 19:29] LABS: ANION GAP 15 MEQ/L (2-14)
[2017-09-21 19:30] LABS: TOTAL BILIRUBIN 0.4 mg/dL (0.0-1.0)
[2017-09-21 19:32] LABS: ALKALINE PHOSPHATASE 124 IU/L (3-129); GFR ESTIMATE (CALCULATED) 39 mL/min/
[2017-09-21 19:51] LABS: GLUCOSE 514 mg/dL (70-99); UREA NITROGEN (BUN) 108 mg/dL (9-23)
[2017-09-21] MEDS ORDERED: NEPRO CARB STE237 ML PO (23:07)
[2017-09-21] MEDS ORDERED: HUMALOG100 UNIT/2 SC (23:09)
[2017-09-21 23:12] LABS: POINT-OF-CARE METER ID UU13113747
[2017-09-21] MEDS ORDERED: ZOFRAN ODT4 MG GT (23:13)
[2017-09-21 23:25] LABS: ADD MIUA? YES; BILIRUBIN NEGATIVE; BLOOD MODERATE; COLOR YELLOW ((YELLOW)); GLUCOSE (STRIP) 50; KETONES NEGATIVE; LEUKOCYTES LARGE; NITRITE NEGATIVE; PROTEIN (STRIP) 30; SPECIFIC GRAVITY 1.014 (1.000-1.030)
[2017-09-21 23:36] LABS: BACTERIA NONE SEEN /HPF; EPITHELIAL CELLS NONE SEEN /HPF; MUCUS NONE SEEN /LPF; UCUL ADDED? YES; WHITE BLOOD CELLS TNTC /HPF (0-5)
[2017-09-21 23:51] LABS: CHLORIDE 95 mEq/L (99-109); POTASSIUM 4.5 mEq/L (3.7-5.4); SODIUM 140 mEq/L (136-147)
[2017-09-21 23:53] LABS: GLUCOSE 287 mg/dL (70-99)
[2017-09-21 23:54] LABS: ANION GAP 15 MEQ/L (2-14)
[2017-09-21 23:57] LABS: GFR ESTIMATE (CALCULATED) 45 mL/min/
[2017-09-21 23:58] LABS: UREA NITROGEN (BUN) 102 mg/dL (9-23)
[2017-09-22 00:55] VITALS: BP 173/74
[2017-09-22 01:28] LABS: POINT-OF-CARE METER ID UU14188577
[2017-09-22 04:29] VITALS: BP 161/70
[2017-09-22 06:13] LABS: POINT-OF-CARE METER ID UU14188577
[2017-09-22 07:01] LABS: HEMATOCRIT 35.7 % (38.0-50.0); MCH 29.3 PG (29.0-34.0); MCHC 31.7 G/DL (30.0-36.0); MCV 92.5 FL (86-99); MEAN PLAT.VOLUME 11.1 uM^3 (9.0-12.4); PLATELET COUNT 288 K/uL (156-360); RBC DIS.WIDTH-CV 13.8 % (11.8-14.6); RBC DIS.WIDTH-SD 46.7 % (39-53); RED BLOOD COUNT 3.86 M/uL (4.00-5.50); WHITE BLOOD COUNT 10.1 K/uL (4.1-10.2)
[2017-09-22 07:23] LABS: ALKALINE PHOSPHATASE 82 IU/L (3-129); ANION GAP 8 MEQ/L (2-14); CHLORIDE 98 MEQ/L (99-109); GFR ESTIMATE (CALCULATED) 53 mL/min/; GLUCOSE 210 mg/dL (70-99); POTASSIUM 4.1 MEQ/L (3.7-5.4); SAMPLE HEMOLYSIS CHECK 0; SAMPLE ICTERIC CHECK 0; SAMPLE LIPEMIA CHECK 0; SODIUM 141 MEQ/L (136-147); UREA NITROGEN (BUN) 94 mg/dL (9-23)
[2017-09-22 07:25] LABS: TOTAL BILIRUBIN 0.5 MG/DL (0.0-1.0)
[2017-09-22 08:00] VITALS: BP 100/62
[2017-09-22 10:43] LABS: Estimated Average Glucose 240 mg/dL (70-123)
[2017-09-22 11:00] VITALS: BP 156/75
[2017-09-22 11:43] LABS: POINT-OF-CARE METER ID UU14208753
[2017-09-22 15:37] VITALS: BP 125/58
[2017-09-22 16:37] LABS: POINT-OF-CARE METER ID UU14208753
[2017-09-22 19:56] VITALS: BP 132/63
[2017-09-23 00:11] VITALS: BP 111/53
[2017-09-23 00:14] LABS: POINT-OF-CARE METER ID UU14188577
[2017-09-23 04:22] VITALS: BP 130/60
[2017-09-23 06:15] LABS: POINT-OF-CARE METER ID UU14188577
[2017-09-23 06:22] LABS: BASOPHIL COUNT 0.1 K/uL (0-0.1); EOSINOPHIL (%) 3.6 % (0-5); EOSINOPHIL COUNT 0.3 K/uL (0-0.3); HEMATOCRIT 35.1 % (38.0-50.0); IMMATURE GRANULOCYTE (%) 0.7 % (0.0-0.7); IMMATURE GRANULOCYTE COUNT 0.1 K/uL; INSTRUMENT ABS NEUTROPHIL CT 5.9 K/uL; LYMPHOCYTE COUNT 0.8 K/uL (1.0-2.8); MCH 29.3 PG (29.0-34.0); MCHC 31.3 G/DL (30.0-36.0); MCV 93.4 FL (86-99); MEAN PLAT.VOLUME 10.7 uM^3 (9.0-12.4); MONOCYTE (%) 8.3 % (3-12); MONOCYTE COUNT 0.6 K/uL (0-0.8); NEUTROPHIL (%) 76.7 % (45-76); NEUTROPHIL COUNT 5.9 K/uL (1.8-6.4); PLATELET COUNT 255 K/uL (156-360); RBC DIS.WIDTH-CV 13.8 % (11.8-14.6); RBC DIS.WIDTH-SD 46.6 % (39-53); RED BLOOD COUNT 3.76 M/uL (4.00-5.50); WHITE BLOOD COUNT 7.7 K/uL (4.1-10.2)
[2017-09-23 06:40] LABS: ANION GAP 8 MEQ/L (2-14); CHLORIDE 102 MEQ/L (99-109); GFR ESTIMATE (CALCULATED) 57 mL/min/; GLUCOSE 310 mg/dL (70-99); POTASSIUM 4.2 MEQ/L (3.7-5.4); SAMPLE HEMOLYSIS CHECK 0; SAMPLE ICTERIC CHECK 0; SAMPLE LIPEMIA CHECK 0; SODIUM 143 MEQ/L (136-147); UREA NITROGEN (BUN) 78 mg/dL (9-23)
[2017-09-23 08:09] VITALS: BP 153/68
[2017-09-23 12:49] VITALS: BP 165/72
[2017-09-23 12:59] LABS: POINT-OF-CARE METER ID UU14149397
[2017-09-23 16:31] VITALS: BP 159/68
[2017-09-23 18:45] LABS: POINT-OF-CARE METER ID UU14188577
[2017-09-23 20:22] VITALS: BP 168/74
[2017-09-24 00:03] VITALS: BP 138/64
[2017-09-24 00:59] LABS: POINT-OF-CARE METER ID UU14188577
[2017-09-24 03:46] VITALS: BP 136/88
[2017-09-24 06:34] LABS: POINT-OF-CARE METER ID UU14188577
[2017-09-24 07:35] LABS: BASOPHIL COUNT 0.1 K/uL (0-0.1); EOSINOPHIL (%) 2.3 % (0-5); EOSINOPHIL COUNT 0.2 K/uL (0-0.3); HEMATOCRIT 36.3 % (38.0-50.0); IMMATURE GRANULOCYTE (%) 0.9 % (0.0-0.7); IMMATURE GRANULOCYTE COUNT 0.1 K/uL; INSTRUMENT ABS NEUTROPHIL CT 6.3 K/uL; LYMPHOCYTE COUNT 1.1 K/uL (1.0-2.8); MCH 29.1 PG (29.0-34.0); MCHC 30.6 G/DL (30.0-36.0); MCV 95.3 FL (86-99); MEAN PLAT.VOLUME 10.3 uM^3 (9.0-12.4); MONOCYTE (%) 8.5 % (3-12); MONOCYTE COUNT 0.7 K/uL (0-0.8); NEUTROPHIL (%) 74.2 % (45-76); NEUTROPHIL COUNT 6.3 K/uL (1.8-6.4); PLATELET COUNT 228 K/uL (156-360); RBC DIS.WIDTH-CV 13.9 % (11.8-14.6); RBC DIS.WIDTH-SD 48.6 % (39-53); RED BLOOD COUNT 3.81 M/uL (4.00-5.50); WHITE BLOOD COUNT 8.5 K/uL (4.1-10.2)
[2017-09-24 07:51] LABS: ANION GAP 9 MEQ/L (2-14); CHLORIDE 104 MEQ/L (99-109); GFR ESTIMATE (CALCULATED) 57 mL/min/ (58.99-99999); GLUCOSE 314 mg/dL (70-99); SAMPLE HEMOLYSIS CHECK 0; SAMPLE ICTERIC CHECK 0; SAMPLE LIPEMIA CHECK 0; SODIUM 143 MEQ/L (136-147); UREA NITROGEN (BUN) 63 mg/dL (9-23)
[2017-09-24 07:55] VITALS: BP 157/70
[2017-09-24 12:06] VITALS: BP 159/70
[2017-09-24 12:21] LABS: POINT-OF-CARE METER ID UU14149397
[2017-09-24 16:40] LABS: POINT-OF-CARE METER ID UU14208753
[2017-09-24 16:43] VITALS: BP 147/63
[2017-09-24 19:55] LABS: POINT-OF-CARE METER ID UU14117124
[2017-09-24 20:15] VITALS: BP 167/73
[2017-09-25 00:03] VITALS: BP 141/65
[2017-09-25 00:16] LABS: POINT-OF-CARE METER ID UU14117124
[2017-09-25 04:00] VITALS: BP 145/65
[2017-09-25 06:50] LABS: POINT-OF-CARE METER ID UU14149397
[2017-09-25 06:59] LABS: BASOPHIL COUNT 0.1 K/uL (0-0.1); EOSINOPHIL (%) 2.9 % (0-5); EOSINOPHIL COUNT 0.3 K/uL (0-0.3); HEMATOCRIT 38.6 % (38.0-50.0); IMMATURE GRANULOCYTE (%) 0.7 % (0.0-0.7); IMMATURE GRANULOCYTE COUNT 0.1 K/uL; INSTRUMENT ABS NEUTROPHIL CT 7.5 K/uL; MCH 29.1 PG (29.0-34.0); MCHC 31.3 G/DL (30.0-36.0); MCV 92.8 FL (86-99); MONOCYTE (%) 6.4 % (3-12); MONOCYTE COUNT 0.6 K/uL (0-0.8); NEUTROPHIL (%) 78.9 % (45-76); NEUTROPHIL COUNT 7.5 K/uL (1.8-6.4); RBC DIS.WIDTH-CV 13.6 % (11.8-14.6); RBC DIS.WIDTH-SD 46.5 % (39-53); RED BLOOD COUNT 4.16 M/uL (4.00-5.50); WHITE BLOOD COUNT 9.5 K/uL (4.1-10.2)
[2017-09-25 07:21] LABS: HEMATOLOGY COMMENT 1 SMEAR COMPATIBLE; MEAN PLAT.VOLUME 10.8 uM^3 (9.0-12.4); PLAT.SUFFICIENCY ADEQUATE; PLATELET COUNT 164 K/uL (156-360)
[2017-09-25 07:51] LABS: ANION GAP 9 MEQ/L (2-14); CHLORIDE 104 MEQ/L (99-109); GFR ESTIMATE (CALCULATED) 57 mL/min/ (58.99-99999); GLUCOSE 197 mg/dL (70-99); POTASSIUM 4.4 MEQ/L (3.7-5.4); SAMPLE HEMOLYSIS CHECK 0; SAMPLE ICTERIC CHECK 0; SAMPLE LIPEMIA CHECK 0; SODIUM 145 MEQ/L (136-147); UREA NITROGEN (BUN) 59 mg/dL (9-23)
[2017-09-25 10:02] VITALS: BP 163/50
[2017-09-25 12:06] LABS: POINT-OF-CARE METER ID UU14117124
[2017-09-25 12:37] VITALS: BP 132/61
[2017-09-25 15:05] VITALS: BP 143/64
[2017-09-25 17:44] LABS: POINT-OF-CARE METER ID UU14149397
[2017-09-25 20:09] VITALS: BP 134/63
[2017-09-26 00:08] VITALS: BP 141/63
[2017-09-26 00:30] LABS: POINT-OF-CARE METER ID UU14117124
[2017-09-26 06:13] LABS: POINT-OF-CARE METER ID UU14117124
[2017-09-26 06:45] LABS: BASOPHIL COUNT 0.1 K/uL (0-0.1); EOSINOPHIL (%) 2.2 % (0-5); EOSINOPHIL COUNT 0.2 K/uL (0-0.3); HEMATOCRIT 35.9 % (38.0-50.0); IMMATURE GRANULOCYTE (%) 0.7 % (0.0-0.7); IMMATURE GRANULOCYTE COUNT 0.1 K/uL; INSTRUMENT ABS NEUTROPHIL CT 8.8 K/uL; MCH 29.1 PG (29.0-34.0); MCHC 31.2 G/DL (30.0-36.0); MCV 93.2 FL (86-99); MEAN PLAT.VOLUME 10.6 uM^3 (9.0-12.4); MONOCYTE (%) 6.9 % (3-12); MONOCYTE COUNT 0.8 K/uL (0-0.8); NEUTROPHIL (%) 80.5 % (45-76); NEUTROPHIL COUNT 8.8 K/uL (1.8-6.4); PLATELET COUNT 253 K/uL (156-360); RBC DIS.WIDTH-CV 13.6 % (11.8-14.6); RBC DIS.WIDTH-SD 45.8 % (39-53); RED BLOOD COUNT 3.85 M/uL (4.00-5.50)
[2017-09-26 07:10] LABS: ANION GAP 10 MEQ/L (2-14); CHLORIDE 104 MEQ/L (99-109); GFR ESTIMATE (CALCULATED) > 59 mL/min/ (58.99-99999); GLUCOSE 236 mg/dL (70-99); POTASSIUM 4.3 MEQ/L (3.7-5.4); SAMPLE HEMOLYSIS CHECK 0; SAMPLE ICTERIC CHECK 0; SAMPLE LIPEMIA CHECK 0; SODIUM 146 MEQ/L (136-147); UREA NITROGEN (BUN) 61 mg/dL (9-23)
[2017-09-26 08:15] VITALS: BP 170/70
[2017-09-26 12:16] LABS: POINT-OF-CARE METER ID UU14149397
[2017-09-26 12:25] VITALS: BP 141/65
[2017-09-26 16:00] VITALS: BP 147/66
[2017-09-26 17:29] LABS: POINT-OF-CARE METER ID UU14208753
[2017-09-26 19:28] VITALS: BP 141/60
[2017-09-27] VITALS (7 sets, daily range): BP systolic 121–162; BP diastolic 58–69
[2017-09-27 00:41] LABS: POINT-OF-CARE METER ID UU14117124
[2017-09-27 07:11] LABS: POINT-OF-CARE METER ID UU14208753
[2017-09-27 07:47] LABS: BASOPHIL COUNT 0.1 K/uL (0-0.1); EOSINOPHIL COUNT 0.4 K/uL (0-0.3); HEMATOCRIT 36.4 % (38.0-50.0); IMMATURE GRANULOCYTE (%) 0.7 % (0.0-0.7); IMMATURE GRANULOCYTE COUNT 0.1 K/uL; INSTRUMENT ABS NEUTROPHIL CT 9.3 K/uL; LYMPHOCYTE COUNT 1.2 K/uL (1.0-2.8); MCH 29.1 PG (29.0-34.0); MCV 93.8 FL (86-99); MEAN PLAT.VOLUME 10.7 uM^3 (9.0-12.4); MONOCYTE (%) 5.9 % (3-12); MONOCYTE COUNT 0.7 K/uL (0-0.8); NEUTROPHIL (%) 79.2 % (45-76); NEUTROPHIL COUNT 9.3 K/uL (1.8-6.4); PLATELET COUNT 266 K/uL (156-360); RBC DIS.WIDTH-CV 13.5 % (11.8-14.6); RBC DIS.WIDTH-SD 46.3 % (39-53); RED BLOOD COUNT 3.88 M/uL (4.00-5.50); WHITE BLOOD COUNT 11.7 K/uL (4.1-10.2)
[2017-09-27 08:16] LABS: ANION GAP 9 MEQ/L (2-14); CHLORIDE 103 MEQ/L (99-109); GFR ESTIMATE (CALCULATED) > 59 mL/min/ (58.99-99999); GLUCOSE 257 mg/dL (70-99); SAMPLE HEMOLYSIS CHECK 0; SAMPLE ICTERIC CHECK 0; SAMPLE LIPEMIA CHECK 0; SODIUM 145 MEQ/L (136-147); UREA NITROGEN (BUN) 60 mg/dL (9-23)
[2017-09-27 11:54] LABS: POINT-OF-CARE METER ID UU14117124
[2017-09-27 18:35] LABS: POINT-OF-CARE METER ID UU14188577
[2017-09-27 22:20] LABS: POINT-OF-CARE METER ID UU14149397
[2017-09-28 04:27] VITALS: BP 147/65
[2017-09-28 06:11] LABS: POINT-OF-CARE METER ID UU14149397
[2017-09-28 07:15] LABS: BASOPHIL COUNT 0.1 K/uL (0-0.1); EOSINOPHIL (%) 3.3 % (0-5); EOSINOPHIL COUNT 0.4 K/uL (0-0.3); HEMATOCRIT 34.1 % (38.0-50.0); IMMATURE GRANULOCYTE COUNT 0.1 K/uL; INSTRUMENT ABS NEUTROPHIL CT 9.7 K/uL; LYMPHOCYTE COUNT 1.2 K/uL (1.0-2.8); MCH 30.2 PG (29.0-34.0); MCV 94.5 FL (86-99); MEAN PLAT.VOLUME 10.6 uM^3 (9.0-12.4); MONOCYTE (%) 6.2 % (3-12); MONOCYTE COUNT 0.8 K/uL (0-0.8); NEUTROPHIL (%) 79.1 % (45-76); NEUTROPHIL COUNT 9.7 K/uL (1.8-6.4); PLATELET COUNT 246 K/uL (156-360); RBC DIS.WIDTH-CV 13.6 % (11.8-14.6); RBC DIS.WIDTH-SD 46.7 % (39-53); RED BLOOD COUNT 3.61 M/uL (4.00-5.50); WHITE BLOOD COUNT 12.2 K/uL (4.1-10.2)
[2017-09-28 07:44] LABS: ANION GAP 7 MEQ/L (2-14); CHLORIDE 102 MEQ/L (99-109); GFR ESTIMATE (CALCULATED) > 59 mL/min/ (58.99-99999); GLUCOSE 145 mg/dL (70-99); POTASSIUM 4.2 MEQ/L (3.7-5.4); SAMPLE HEMOLYSIS CHECK 0; SAMPLE ICTERIC CHECK 0; SAMPLE LIPEMIA CHECK 0; SODIUM 143 MEQ/L (136-147); UREA NITROGEN (BUN) 62 mg/dL (9-23)
[2017-09-28 08:18] VITALS: BP 152/70
[2017-09-28 12:08] VITALS: BP 116/62
[2017-09-28 12:14] LABS: POINT-OF-CARE METER ID UU14117124
[2017-09-28 15:49] VITALS: BP 110/48
[2017-09-28 19:06] LABS: POINT-OF-CARE METER ID UU14117124
[2017-09-28 20:00] VITALS: BP 128/78
[2017-09-29] VITALS: BP 121/56
[2017-09-29 00:03] LABS: POINT-OF-CARE METER ID UU14117124
[2017-09-29 04:45] VITALS: BP 122/56
[2017-09-29 06:19] LABS: POINT-OF-CARE METER ID UU14149397
[2017-09-29 07:39] LABS: HEMATOCRIT 34.2 % (38.0-50.0); MCV 93.4 FL (86-99); MEAN PLAT.VOLUME 10.7 uM^3 (9.0-12.4); PLATELET COUNT 278 K/uL (156-360); RBC DIS.WIDTH-CV 13.4 % (11.8-14.6); RBC DIS.WIDTH-SD 45.6 % (39-53); RED BLOOD COUNT 3.66 M/uL (4.00-5.50); WHITE BLOOD COUNT 12.1 K/uL (4.1-10.2)
[2017-09-29 07:48] VITALS: BP 142/54
[2017-09-29] MEDS ORDERED: CEFTRIAXONE2 G1 IV (10:00)
[2017-09-29 11:37] VITALS: BP 116/48
[2017-09-29 11:53] LABS: POINT-OF-CARE METER ID UU14117124
== END 2017-09-29 14:16 | DRG 698 ==
LOC: EME 18:18 → EDOF 22:20 → 3EAST 22:20 → ENRESERV 22:21 → 3EAST 09-22 00:37
PROVIDERS: Emergency Medicine; Hospitalist; Internal Medicine; Nurse Practitioner Adult Health; Physician Assistant
DX: T83.511A Infection and inflammatory reaction due to indwelling urethral catheter, initial encounter (principal); L89.153 Pressure ulcer of sacral region, stage 3; N39.0 Urinary tract infection, site not specified; N17.9 Acute kidney failure, unspecified; G82.50 Quadriplegia, unspecified; I48.0 Paroxysmal atrial fibrillation; E11.65 Type 2 diabetes mellitus with hyperglycemia; E86.0 Dehydration; D51.9 Vitamin B12 deficiency anemia, unspecified; E11.21 Type 2 diabetes mellitus with diabetic nephropathy; N40.1 Benign prostatic hyperplasia with lower urinary tract symptoms; N31.9 Neuromuscular dysfunction of bladder, unspecified; I10 Essential (primary) hypertension; R13.10 Dysphagia, unspecified; E11.42 Type 2 diabetes mellitus with diabetic polyneuropathy; E11.22 Type 2 diabetes mellitus with diabetic chronic kidney disease; I51.7 Cardiomegaly; E78.5 Hyperlipidemia, unspecified; N18.3 Chronic kidney disease, stage 3 (moderate); M45.9 Ankylosing spondylitis of unspecified sites in spine; I87.2 Venous insufficiency (chronic) (peripheral); S90.821A Blister (nonthermal), right foot, initial encounter; F41.9 Anxiety disorder, unspecified; B96.4 Proteus (mirabilis) (morganii) as the cause of diseases classified elsewhere; Z16.29 Resistance to other single specified antibiotic; Z98.1 Arthrodesis status; Z87.891 Personal history of nicotine dependence; Z68.34 Body mass index [BMI] 34.0-34.9, adult; Z79.4 Long term (current) use of insulin; Z93.1 Gastrostomy status; Z79.01 Long term (current) use of anticoagulants; Z86.711 Personal history of pulmonary embolism; Z79.899 Other long term (current) drug therapy; Z87.442 Personal history of urinary calculi; Z91.5 Personal history of self-harm
CPT/HCPCS: 71010; 80048; 80048 91; 80053; 81003; 82948; 83036; 84999; 85025; 85027; 87077; 87086; 87186; 92526 GN; 92610 GN; 93005; 99281; 99285; J0696; J1815; J7030

== ENCOUNTER 2017-10-08 13:26 | Inpatient (IN) | payer OTHER ==
[2017-10-08] VITALS (17 sets, daily range): BP systolic 59–126; BP diastolic 37–54
[~2017-10-08] VITALS: Ht 177.8 cm; Wt 115.1 kg
[~2017-10-08 13:26] MED LIST changes: +CALCIDOL8000 UNIT/ GT; +CEFTRIAXONE2 G1 IV; -ERGOCALCIF50000 UNIT PO; +HUMALOG100 UNIT/2 SC; +LIPITOR20 MG GT; +NEPRO CARB STE237 ML GT; +PROSCAR5 MG GT; -ROCALTROL0.25 MCG PO; +ROCALTROL1 MCG/1 ML GT; +TRAMADOL HCL50 MG GT; -TRAMADOL HCL50 MG PO; +XARELTO20 MG GT; -XARELTO20 MG PO; +ZOFRAN ODT4 MG GT
[2017-10-08 14:09] LABS: BASE EXCESS 5.4 mEq/L (-3 to +3); BICARBONATE 30.5 mEq/L (22-26); CARBOXY HGB 1.9 % (0-5); COMMENTS - BLOOD GASES +C; DEVICE NC; METHEMOGLOBIN 1.3 % (0-1.5); O2 FLOW 2 L/MIN; PCO2 46 mm Hg (35-45); PO2 69 mm Hg (80-100); SITE LR +A; TOTAL RESP RATE 43 resp/min; pH 7.43 (7.35-7.45)
[2017-10-08 14:16] LABS: BASOPHIL (%) 0.2 % (0-1); EOSINOPHIL (%) 0 % (0-5); HEMOGLOBIN 13.7 G/DL (12.5-16.6); IMMATURE GRANULOCYTE (%) 0.7 % (0.0-0.7); LYMPHOCYTE (%) 5.4 % (15-42); LYMPHOCYTE COUNT 0.5 K/uL (1.0-2.8); MCH 29.6 PG (29.0-34.0); MCHC 31.1 G/DL (30.0-36.0); MONOCYTE (%) 3.7 % (3-12); MONOCYTE COUNT 0.4 K/uL (0-0.8); NEUTROPHIL COUNT 8.4 K/uL (1.8-6.4); PLATELET COUNT 384 K/uL (156-360); RBC DIS.WIDTH-CV 14.5 % (11.8-14.6); RED BLOOD COUNT 4.63 M/uL (4.00-5.50); WHITE BLOOD COUNT 9.4 K/uL (4.1-10.2)
[2017-10-08 14:22] LABS: INTER. NORMALIZED RATIO 1.8
[2017-10-08 14:25] LABS: PTT 33.9 SEC (25-37)
[2017-10-08 14:27] LABS: ALBUMIN 2.4 g/dL (3.2-4.8); CHLORIDE 96 mEq/L (99-109); POTASSIUM 4.3 mEq/L (3.7-5.4); SODIUM 144 mEq/L (136-147)
[2017-10-08 14:30] LABS: TOTAL PROTEIN 6.8 g/dL (6.4-8.3)
[2017-10-08 14:31] LABS: TOTAL BILIRUBIN 0.4 mg/dL (0.0-1.0)
[2017-10-08 14:33] LABS: ALKALINE PHOSPHATASE 81 IU/L (3-129)
[2017-10-08 14:35] LABS: AST (GOT) 33 IU/L (2-34); CREATININE 2.9 mg/dL (0.6-1.3); GFR ESTIMATE (CALCULATED) 23 mL/min/ (58.99-99999); GLUCOSE 532 mg/dL (70-99); UREA NITROGEN (BUN) 160 mg/dL (9-23)
[2017-10-08 14:36] LABS: ALT (GPT) 40 IU/L (3-49); LIPASE 73 U/L (1.0-51.0)
[2017-10-08 14:37] LABS: TROP-I INTERPRETATION NEGATIVE; TROPONIN-I 0.22 ng/mL (0.0-0.30)
[2017-10-08 14:47] LABS: C DIFF TOXIN POSITIVE (NEGATIVE)
[2017-10-08 18:34] LABS: ALBUMIN 1.8 G/DL (3.2-4.8); ALT (GPT) 26 IU/L (3-49); AST (GOT) 21 IU/L (2-34); GLUCOSE 358 mg/dL (70-99); SODIUM 145 MEQ/L (136-147); TOTAL BILIRUBIN 0.3 MG/DL (0.0-1.0)
[2017-10-08 18:39] LABS: CHLORIDE 107 MEQ/L (99-109); CREATININE 2.2 MG/DL (0.6-1.3); GFR ESTIMATE (CALCULATED) 31 mL/min/ (58.99-99999); POTASSIUM 3.4 MEQ/L (3.7-5.4); UREA NITROGEN (BUN) 144 mg/dL (9-23)
[2017-10-08 18:40] LABS: ALKALINE PHOSPHATASE 58 IU/L (3-129)
[2017-10-08 18:46] LABS: BICARBONATE 27.8 mEq/L (22-26); CARBOXY HGB 1.8 % (0-5); COMMENTS - BLOOD GASES C+; DEVICE VENT; FI02 50 %; MECHANICAL RATE 14 resp/min; METHEMOGLOBIN 1.7 % (0-1.5); MODE AC; PCO2 54 mm Hg (35-45); PEEP 5 CM/H20; PO2 79 mm Hg (80-100); SITE RR; TIDAL VOLUME 490 ML; TOTAL RESP RATE 14 resp/min; pH 7.32 (7.35-7.45)
[2017-10-08] MEDS ORDERED: FLOMAX0.4 MG GT (18:49)
[2017-10-08] MEDS ORDERED: ZANAFLEX6 MG GT (18:53)
[2017-10-08] MEDS ORDERED: AMLODIPINE BESYL5 MG GT (18:55)
[2017-10-08] MEDS ORDERED: CHLORTHALIDONE50 MG GT (18:56)
[2017-10-08] MEDS ORDERED: MIRALAX17 GM GT (18:58)
[2017-10-08] MEDS ORDERED: CYANOCOBALAM1000 MCG GT (18:59)
[2017-10-08] MEDS ORDERED: BASAGLAR K100 UNIT/1 SC (19:02)
[2017-10-08] MEDS ORDERED: PHILLIPS'400 MG/5 M GT (19:03)
[2017-10-08] MEDS ORDERED: DULCOLAX10 MG PR (19:04)
[2017-10-08] MEDS ORDERED: FLEET ENEMA-AD118 ML PR (19:04)
[2017-10-08] MEDS ORDERED: NORMAL SALINE FL5 ML GT (19:07)
[2017-10-08 20:16] LABS: TROP-I INTERPRETATION NEGATIVE; TROPONIN-I 0.19 ng/mL (0.0-0.30)
[2017-10-09] VITALS (24 sets, daily range): BP systolic 98–161; BP diastolic 38–85
[2017-10-09 00:22] LABS: TROP-I INTERPRETATION NEGATIVE; TROPONIN-I 0.18 ng/mL (0.0-0.30)
[2017-10-09 06:16] LABS: CHLORIDE 105 MEQ/L (99-109); CREATININE 2.4 MG/DL (0.6-1.3); GFR ESTIMATE (CALCULATED) 28 mL/min/ (58.99-99999); POTASSIUM 4.2 MEQ/L (3.7-5.4); SODIUM 143 MEQ/L (136-147)
[2017-10-09 06:25] LABS: ALKALINE PHOSPHATASE 51 IU/L (3-129); ALT (GPT) 31 IU/L (3-49); AST (GOT) 26 IU/L (2-34); TOTAL BILIRUBIN 0.3 MG/DL (0.0-1.0); TOTAL PROTEIN 5.2 G/DL (6.4-8.3)
[2017-10-09 06:29] LABS: GLUCOSE 496 mg/dL (70-99); UREA NITROGEN (BUN) 146 mg/dL (9-23)
[2017-10-09 12:12] LABS: HIGH-SENS C-REACTIVE PROTEIN > 8.00 MG/DL (0.02-0.20)
[2017-10-09 13:57] LABS: APPEARANCE CLEAR ((CLEAR)); BILIRUBIN NEGATIVE; BLOOD NEGATIVE; COLOR YELLOW ((YELLOW)); GLUCOSE (STRIP) NEGATIVE; KETONES NEGATIVE; LEUKOCYTES NEGATIVE; NITRITE NEGATIVE; PROTEIN (STRIP) NEGATIVE; SPECIFIC GRAVITY 1.016 (1.000-1.030); UROBILINOGEN 0.2 MG/DL (0.2-1.0)
[2017-10-09 22:01] LABS: ALBUMIN 2.7 G/DL (3.2-4.8); CHLORIDE 111 MEQ/L (99-109); CREATININE 2.2 MG/DL (0.6-1.3); GFR ESTIMATE (CALCULATED) 31 mL/min/ (58.99-99999); PHOSPHORUS 3.4 mg/dL (2.5-4.9); POTASSIUM 3.1 MEQ/L (3.7-5.4); SODIUM 149 MEQ/L (136-147)
[2017-10-09 22:09] LABS: GLUCOSE 248 mg/dL (70-99)
[2017-10-09 22:22] LABS: UREA NITROGEN (BUN) 141 mg/dL (9-23)
[2017-10-10] VITALS (24 sets, daily range): BP systolic 0–159; BP diastolic 0–84
[2017-10-10 06:32] LABS: BASOPHIL (%) 0.2 % (0-1); EOSINOPHIL (%) 0.4 % (0-5); HEMATOCRIT 26.4 % (38.0-50.0); IMMATURE GRANULOCYTE (%) 0.6 % (0.0-0.7); LYMPHOCYTE (%) 7.3 % (15-42); LYMPHOCYTE COUNT 0.7 K/uL (1.0-2.8); MCH 29.1 PG (29.0-34.0); MCHC 31.1 G/DL (30.0-36.0); MCV 93.6 FL (86-99); MONOCYTE (%) 4.5 % (3-12); MONOCYTE COUNT 0.4 K/uL (0-0.8); NEUTROPHIL COUNT 8.5 K/uL (1.8-6.4); NRBC (%) 0.2 /100 WBC (0-0); RBC DIS.WIDTH-CV 14.7 % (11.8-14.6); RBC DIS.WIDTH-SD 50.1 % (39-53); WHITE BLOOD COUNT 9.8 K/uL (4.1-10.2)
[2017-10-10 06:33] LABS: HEMOGLOBIN 8.2 G/DL (12.5-16.6); RED BLOOD COUNT 2.82 M/uL (4.00-5.50)
[2017-10-10 06:54] LABS: ALBUMIN 2.7 G/DL (3.2-4.8); ALKALINE PHOSPHATASE 39 IU/L (3-129); ALT (GPT) 30 IU/L (3-49); AST (GOT) 24 IU/L (2-34); CHLORIDE 113 MEQ/L (99-109); CREATININE 1.8 MG/DL (0.6-1.3); GFR ESTIMATE (CALCULATED) 39 mL/min/ (58.99-99999); GLUCOSE 199 mg/dL (70-99); HIGH-SENS C-REACTIVE PROTEIN 7.27 MG/DL (0.02-0.20); POTASSIUM 3.4 MEQ/L (3.7-5.4); SODIUM 152 MEQ/L (136-147); TOTAL PROTEIN 5.2 G/DL (6.4-8.3)
[2017-10-10 07:06] LABS: TOTAL BILIRUBIN 0.5 MG/DL (0.0-1.0); UREA NITROGEN (BUN) 125 mg/dL (9-23)
[2017-10-10 07:16] LABS: MAGNESIUM 2.2 mg/dl (1.3-2.7)
[2017-10-10 07:18] LABS: PLAT.SUFFICIENCY ADEQUATE
[2017-10-10 07:33] LABS: PLATELET COUNT 240 K/uL (156-360)
[2017-10-11] VITALS (23 sets, daily range): BP systolic 50–162; BP diastolic 28–95
[2017-10-11 04:36] LABS: BASOPHIL (%) 0.1 % (0-1); EOSINOPHIL (%) 1.6 % (0-5); EOSINOPHIL COUNT 0.1 K/uL (0-0.3); HEMATOCRIT 25.4 % (38.0-50.0); HEMOGLOBIN 8.1 G/DL (12.5-16.6); IMMATURE GRANULOCYTE (%) 1.3 % (0.0-0.7); LYMPHOCYTE (%) 8.6 % (15-42); LYMPHOCYTE COUNT 0.8 K/uL (1.0-2.8); MCHC 31.9 G/DL (30.0-36.0); MCV 94.1 FL (86-99); MONOCYTE (%) 5.2 % (3-12); MONOCYTE COUNT 0.5 K/uL (0-0.8); NEUTROPHIL (%) 83.2 % (45-76); NEUTROPHIL COUNT 7.2 K/uL (1.8-6.4); NRBC (%) 0.7 /100 WBC (0-0); PLATELET COUNT 209 K/uL (156-360); RBC DIS.WIDTH-CV 15.4 % (11.8-14.6); RBC DIS.WIDTH-SD 51.9 % (39-53); WHITE BLOOD COUNT 8.7 K/uL (4.1-10.2)
[2017-10-11 04:44] LABS: ALBUMIN 2.5 g/dL (3.2-4.8); POTASSIUM 3.3 mEq/L (3.7-5.4); SODIUM 151 mEq/L (136-147)
[2017-10-11 04:45] LABS: MAGNESIUM 2.1 mg/dL (1.3-2.7)
[2017-10-11 04:47] LABS: GLUCOSE 161 mg/dL (70-99)
[2017-10-11 04:50] LABS: TOTAL BILIRUBIN 0.6 mg/dL (0.0-1.0)
[2017-10-11 04:51] LABS: CREATININE 1.5 mg/dL (0.6-1.3); GFR ESTIMATE (CALCULATED) 48 mL/min/ (58.99-99999)
[2017-10-11 04:52] LABS: AST (GOT) 40 IU/L (2-34); UREA NITROGEN (BUN) 100 mg/dL (9-23)
[2017-10-11 04:53] LABS: ALKALINE PHOSPHATASE 45 IU/L (3-129)
[2017-10-11 04:54] LABS: ALT (GPT) 42 IU/L (3-49); CHLORIDE 117 mEq/L (99-109); TOTAL PROTEIN 5.1 g/dL (6.4-8.3)
[2017-10-12] VITALS (25 sets, daily range): BP systolic 0–174; BP diastolic 0–90
[2017-10-12 07:57] LABS: BASOPHIL (%) 0.2 % (0-1); EOSINOPHIL (%) 0.5 % (0-5); EOSINOPHIL COUNT 0.1 K/uL (0-0.3); HEMATOCRIT 27.7 % (38.0-50.0); HEMOGLOBIN 8.6 G/DL (12.5-16.6); IMMATURE GRANULOCYTE (%) 1.1 % (0.0-0.7); LYMPHOCYTE (%) 2.6 % (15-42); LYMPHOCYTE COUNT 0.3 K/uL (1.0-2.8); MCV 96.5 FL (86-99); MONOCYTE (%) 2.9 % (3-12); MONOCYTE COUNT 0.4 K/uL (0-0.8); NEUTROPHIL (%) 92.7 % (45-76); NEUTROPHIL COUNT 12.2 K/uL (1.8-6.4); NRBC (%) 0.4 /100 WBC (0-0); PLATELET COUNT 196 K/uL (156-360); RBC DIS.WIDTH-CV 15.9 % (11.8-14.6); RBC DIS.WIDTH-SD 54.4 % (39-53); RED BLOOD COUNT 2.87 M/uL (4.00-5.50); WHITE BLOOD COUNT 13.2 K/uL (4.1-10.2)
[2017-10-12 08:12] LABS: ALBUMIN 2.5 G/DL (3.2-4.8); ALKALINE PHOSPHATASE 48 IU/L (3-129); ALT (GPT) 35 IU/L (3-49); AST (GOT) 26 IU/L (2-34); CHLORIDE 113 MEQ/L (99-109); CREATININE 1.1 MG/DL (0.6-1.3); GFR ESTIMATE (CALCULATED) > 59 mL/min/ (58.99-99999); MAGNESIUM 1.9 mg/dl (1.3-2.7); POTASSIUM 3.9 MEQ/L (3.7-5.4); SODIUM 148 MEQ/L (136-147); TOTAL PROTEIN 5.3 G/DL (6.4-8.3); UREA NITROGEN (BUN) 62 mg/dL (9-23)
[2017-10-12 08:15] LABS: GLUCOSE 263 mg/dL (70-99); TOTAL BILIRUBIN 0.7 MG/DL (0.0-1.0)
[2017-10-13] VITALS (24 sets, daily range): BP systolic 0–141; BP diastolic 0–65
[2017-10-13 07:09] LABS: BASOPHIL (%) 0.2 % (0-1); EOSINOPHIL (%) 3.1 % (0-5); EOSINOPHIL COUNT 0.4 K/uL (0-0.3); HEMATOCRIT 24.2 % (38.0-50.0); HEMOGLOBIN 7.5 G/DL (12.5-16.6); IMMATURE GRANULOCYTE (%) 2.2 % (0.0-0.7); LYMPHOCYTE (%) 5.1 % (15-42); LYMPHOCYTE COUNT 0.6 K/uL (1.0-2.8); MCH 30.2 PG (29.0-34.0); MCV 97.6 FL (86-99); MONOCYTE (%) 2.9 % (3-12); MONOCYTE COUNT 0.4 K/uL (0-0.8); NEUTROPHIL (%) 86.5 % (45-76); NEUTROPHIL COUNT 10.9 K/uL (1.8-6.4); NRBC (%) 0.2 /100 WBC (0-0); PLATELET COUNT 163 K/uL (156-360); RBC DIS.WIDTH-SD 54.9 % (39-53); RED BLOOD COUNT 2.48 M/uL (4.00-5.50); WHITE BLOOD COUNT 12.6 K/uL (4.1-10.2)
[2017-10-13 07:33] LABS: ALBUMIN 2.3 G/DL (3.2-4.8); ALKALINE PHOSPHATASE 45 IU/L (3-129); ALT (GPT) 35 IU/L (3-49); AST (GOT) 25 IU/L (2-34); CHLORIDE 108 MEQ/L (99-109); GFR ESTIMATE (CALCULATED) > 59 mL/min/ (58.99-99999); GLUCOSE 283 mg/dL (70-99); MAGNESIUM 1.7 mg/dl (1.3-2.7); TOTAL PROTEIN 4.8 G/DL (6.4-8.3); UREA NITROGEN (BUN) 48 mg/dL (9-23)
[2017-10-13 07:34] LABS: SODIUM 140 MEQ/L (136-147); TOTAL BILIRUBIN 0.5 MG/DL (0.0-1.0)
[2017-10-14] VITALS (24 sets, daily range): BP systolic 110–151; BP diastolic 44–73
[2017-10-14 06:51] LABS: HEMATOCRIT 24.3 % (38.0-50.0); HEMOGLOBIN 7.5 G/DL (12.5-16.6); MCH 29.5 PG (29.0-34.0); MCHC 30.9 G/DL (30.0-36.0); MCV 95.7 FL (86-99); PLATELET COUNT 184 K/uL (156-360); RBC DIS.WIDTH-CV 15.8 % (11.8-14.6); RBC DIS.WIDTH-SD 53.2 % (39-53); RED BLOOD COUNT 2.54 M/uL (4.00-5.50); WHITE BLOOD COUNT 10.9 K/uL (4.1-10.2)
[2017-10-14 07:20] LABS: ALBUMIN 2.3 G/DL (3.2-4.8); ALKALINE PHOSPHATASE 56 IU/L (3-129); ALT (GPT) 35 IU/L (3-49); AST (GOT) 23 IU/L (2-34); CHLORIDE 105 MEQ/L (99-109); CREATININE 0.9 MG/DL (0.6-1.3); GFR ESTIMATE (CALCULATED) > 59 mL/min/ (58.99-99999); GLUCOSE 268 mg/dL (70-99); MAGNESIUM 1.5 mg/dl (1.3-2.7); POTASSIUM 4.4 MEQ/L (3.7-5.4); SODIUM 138 MEQ/L (136-147); TOTAL BILIRUBIN 0.5 MG/DL (0.0-1.0); UREA NITROGEN (BUN) 43 mg/dL (9-23)
[2017-10-14 07:39] LABS: ABS NEUTROPHIL COUNT 9.7; ANISOCYTOSIS 1+; BAND NEUTROPHILS 3.5 % (0-8.0); EOSINOPHIL ABS CT 0.4; EOSINOPHILS 3.5 % (0-5.0); LYMPHOCYTES 1.8 % (15.0-45.0); MONOCYTES 5.3 % (0-9.0); OVALOCYTES 1+; PLAT.SUFFICIENCY ADEQUATE; POIKILOCYTOSIS 1+; SEG.NEUTROPHILS 85.9 % (46.0-76.0)
[2017-10-15] VITALS (24 sets, daily range): BP systolic 108–151; BP diastolic 43–70
[2017-10-15 06:52] LABS: BASOPHIL (%) 0.2 % (0-1); EOSINOPHIL (%) 4.6 % (0-5); EOSINOPHIL COUNT 0.4 K/uL (0-0.3); HEMATOCRIT 23.3 % (38.0-50.0); HEMOGLOBIN 7.3 G/DL (12.5-16.6); IMMATURE GRANULOCYTE (%) 2.2 % (0.0-0.7); LYMPHOCYTE (%) 9.3 % (15-42); LYMPHOCYTE COUNT 0.8 K/uL (1.0-2.8); MCH 29.7 PG (29.0-34.0); MCHC 31.3 G/DL (30.0-36.0); MCV 94.7 FL (86-99); MONOCYTE (%) 4.8 % (3-12); MONOCYTE COUNT 0.4 K/uL (0-0.8); NEUTROPHIL (%) 78.9 % (45-76); NEUTROPHIL COUNT 6.7 K/uL (1.8-6.4); PLATELET COUNT 213 K/uL (156-360); RBC DIS.WIDTH-CV 15.7 % (11.8-14.6); RBC DIS.WIDTH-SD 53.5 % (39-53); RED BLOOD COUNT 2.46 M/uL (4.00-5.50); WHITE BLOOD COUNT 8.5 K/uL (4.1-10.2)
[2017-10-15 07:21] LABS: ALBUMIN 2.1 G/DL (3.2-4.8); ALKALINE PHOSPHATASE 51 IU/L (3-129); ALT (GPT) 34 IU/L (3-49); AST (GOT) 24 IU/L (2-34); CHLORIDE 105 MEQ/L (99-109); CREATININE 0.9 MG/DL (0.6-1.3); GFR ESTIMATE (CALCULATED) > 59 mL/min/ (58.99-99999); GLUCOSE 235 mg/dL (70-99); MAGNESIUM 1.5 mg/dl (1.3-2.7); POTASSIUM 4.3 MEQ/L (3.7-5.4); SODIUM 138 MEQ/L (136-147); TOTAL BILIRUBIN 0.4 MG/DL (0.0-1.0); TOTAL PROTEIN 4.9 G/DL (6.4-8.3); UREA NITROGEN (BUN) 37 mg/dL (9-23)
[2017-10-16] VITALS (24 sets, daily range): BP systolic 91–150; BP diastolic 43–71
[2017-10-16 05:51] LABS: BASOPHIL (%) 0.4 % (0-1); EOSINOPHIL COUNT 0.3 K/uL (0-0.3); HEMATOCRIT 23.2 % (38.0-50.0); HEMOGLOBIN 7.2 G/DL (12.5-16.6); IMMATURE GRANULOCYTE (%) 1.5 % (0.0-0.7); LYMPHOCYTE (%) 5.7 % (15-42); LYMPHOCYTE COUNT 0.6 K/uL (1.0-2.8); MCH 30.5 PG (29.0-34.0); MCV 98.3 FL (86-99); MONOCYTE (%) 3.7 % (3-12); MONOCYTE COUNT 0.4 K/uL (0-0.8); NEUTROPHIL (%) 85.7 % (45-76); NEUTROPHIL COUNT 8.6 K/uL (1.8-6.4); RBC DIS.WIDTH-CV 15.9 % (11.8-14.6); RBC DIS.WIDTH-SD 55.6 % (39-53); RED BLOOD COUNT 2.36 M/uL (4.00-5.50)
[2017-10-16 06:36] LABS: ALBUMIN 2.2 G/DL (3.2-4.8); CHLORIDE 107 MEQ/L (99-109); MAGNESIUM 1.6 mg/dl (1.3-2.7); POTASSIUM 4.4 MEQ/L (3.7-5.4); SODIUM 141 MEQ/L (136-147); TOTAL BILIRUBIN 0.4 MG/DL (0.0-1.0)
[2017-10-16 06:42] LABS: ALKALINE PHOSPHATASE 54 IU/L (3-129); ALT (GPT) 41 IU/L (3-49); AST (GOT) 31 IU/L (2-34); CREATININE 0.9 MG/DL (0.6-1.3); GFR ESTIMATE (CALCULATED) > 59 mL/min/ (58.99-99999); GLUCOSE 183 mg/dL (70-99); TOTAL PROTEIN 5.2 G/DL (6.4-8.3); UREA NITROGEN (BUN) 37 mg/dL (9-23)
[2017-10-16 06:49] LABS: PLAT.SUFFICIENCY ADEQUATE; PLATELET CLUMPS PRESENT - PLATELET COUNT APPEARS ADQ.; POIKILOCYTOSIS 1+
[2017-10-16 07:02] LABS: PLATELET COUNT UNABLE TO REPORT K/uL (156-360)
[2017-10-17] VITALS (24 sets, daily range): BP systolic 101–144; BP diastolic 44–67
[2017-10-17 05:51] LABS: BASOPHIL (%) 0.4 % (0-1); BASOPHIL COUNT 0.1 K/uL (0-0.1); EOSINOPHIL (%) 2.3 % (0-5); EOSINOPHIL COUNT 0.3 K/uL (0-0.3); HEMATOCRIT 23.9 % (38.0-50.0); HEMOGLOBIN 7.5 G/DL (12.5-16.6); IMMATURE GRANULOCYTE (%) 1.4 % (0.0-0.7); LYMPHOCYTE (%) 4.9 % (15-42); LYMPHOCYTE COUNT 0.7 K/uL (1.0-2.8); MCH 30.4 PG (29.0-34.0); MCHC 31.4 G/DL (30.0-36.0); MCV 96.8 FL (86-99); MONOCYTE (%) 2.8 % (3-12); MONOCYTE COUNT 0.4 K/uL (0-0.8); NEUTROPHIL (%) 88.2 % (45-76); PLATELET COUNT 256 K/uL (156-360); RBC DIS.WIDTH-CV 15.8 % (11.8-14.6); RBC DIS.WIDTH-SD 52.7 % (39-53); RED BLOOD COUNT 2.47 M/uL (4.00-5.50); WHITE BLOOD COUNT 13.6 K/uL (4.1-10.2)
[2017-10-17 06:15] LABS: ALBUMIN 2.2 G/DL (3.2-4.8); ALKALINE PHOSPHATASE 59 IU/L (3-129); ALT (GPT) 45 IU/L (3-49); AST (GOT) 30 IU/L (2-34); CHLORIDE 107 MEQ/L (99-109); CREATININE 0.9 MG/DL (0.6-1.3); GFR ESTIMATE (CALCULATED) > 59 mL/min/ (58.99-99999); GLUCOSE 248 mg/dL (70-99); MAGNESIUM 1.5 mg/dl (1.3-2.7); POTASSIUM 4.4 MEQ/L (3.7-5.4); SODIUM 144 MEQ/L (136-147); TOTAL BILIRUBIN 0.4 MG/DL (0.0-1.0); TOTAL PROTEIN 5.2 G/DL (6.4-8.3); UREA NITROGEN (BUN) 37 mg/dL (9-23)
[2017-10-18] VITALS (29 sets, daily range): BP systolic 122–160; BP diastolic 50–85
[2017-10-18 05:49] LABS: BASE EXCESS 5.4 mEq/L (-3 to +3); BICARBONATE 28.6 mEq/L (22-26); CARBOXY HGB 1.6 % (0-5); COMMENTS - BLOOD GASES C+A+; DEVICE VENT; FI02 30 %; MECHANICAL RATE 12 resp/min; METHEMOGLOBIN 1.4 % (0-1.5); MODE AC; PCO2 35 mm Hg (35-45); PEEP 5 CM/H20; PO2 103 mm Hg (80-100); SITE LR; TIDAL VOLUME 700 ML; TOTAL RESP RATE 12 resp/min; pH 7.52 (7.35-7.45)
[2017-10-18 07:14] LABS: BASOPHIL (%) 0.3 % (0-1); EOSINOPHIL (%) 3.2 % (0-5); EOSINOPHIL COUNT 0.3 K/uL (0-0.3); HEMATOCRIT 22.8 % (38.0-50.0); HEMOGLOBIN 7.1 G/DL (12.5-16.6); IMMATURE GRANULOCYTE (%) 0.9 % (0.0-0.7); LYMPHOCYTE (%) 9.8 % (15-42); LYMPHOCYTE COUNT 0.9 K/uL (1.0-2.8); MCH 30.1 PG (29.0-34.0); MCHC 31.1 G/DL (30.0-36.0); MCV 96.6 FL (86-99); MONOCYTE (%) 2.8 % (3-12); MONOCYTE COUNT 0.3 K/uL (0-0.8); NEUTROPHIL COUNT 7.9 K/uL (1.8-6.4); PLATELET COUNT 246 K/uL (156-360); RBC DIS.WIDTH-CV 15.9 % (11.8-14.6); RBC DIS.WIDTH-SD 54.3 % (39-53); RED BLOOD COUNT 2.36 M/uL (4.00-5.50); WHITE BLOOD COUNT 9.5 K/uL (4.1-10.2)
[2017-10-18 08:02] LABS: ALBUMIN 2.1 G/DL (3.2-4.8); ALKALINE PHOSPHATASE 55 IU/L (3-129); ALT (GPT) 51 IU/L (3-49); AST (GOT) 37 IU/L (2-34); CHLORIDE 107 MEQ/L (99-109); CREATININE 0.9 MG/DL (0.6-1.3); GFR ESTIMATE (CALCULATED) > 59 mL/min/ (58.99-99999); GLUCOSE 197 mg/dL (70-99); MAGNESIUM 1.6 mg/dl (1.3-2.7); POTASSIUM 4.2 MEQ/L (3.7-5.4); SODIUM 142 MEQ/L (136-147); TOTAL PROTEIN 5.1 G/DL (6.4-8.3); UREA NITROGEN (BUN) 36 mg/dL (9-23)
[2017-10-18 08:04] LABS: TOTAL BILIRUBIN 0.3 MG/DL (0.0-1.0)
[2017-10-19] VITALS (21 sets, daily range): BP systolic 114–160; BP diastolic 42–100
[2017-10-19 06:51] LABS: BASOPHIL (%) 0.5 % (0-1); BASOPHIL COUNT 0.1 K/uL (0-0.1); EOSINOPHIL (%) 3.2 % (0-5); EOSINOPHIL COUNT 0.3 K/uL (0-0.3); HEMATOCRIT 29.3 % (38.0-50.0); LYMPHOCYTE (%) 5.4 % (15-42); LYMPHOCYTE COUNT 0.5 K/uL (1.0-2.8); MCH 28.7 PG (29.0-34.0); MCHC 31.4 G/DL (30.0-36.0); MONOCYTE (%) 2.2 % (3-12); MONOCYTE COUNT 0.2 K/uL (0-0.8); NEUTROPHIL (%) 87.7 % (45-76); NEUTROPHIL COUNT 8.3 K/uL (1.8-6.4); PLATELET COUNT 278 K/uL (156-360); RBC DIS.WIDTH-SD 58.7 % (39-53); WHITE BLOOD COUNT 9.5 K/uL (4.1-10.2)
[2017-10-19 06:53] LABS: HEMOGLOBIN 9.2 G/DL (12.5-16.6); MCV 91.3 FL (86-99); RED BLOOD COUNT 3.21 M/uL (4.00-5.50)
[2017-10-19 07:21] LABS: ALBUMIN 2.2 G/DL (3.2-4.8); ALKALINE PHOSPHATASE 58 IU/L (3-129); ALT (GPT) 58 IU/L (3-49); AST (GOT) 41 IU/L (2-34); CHLORIDE 107 MEQ/L (99-109); CREATININE 0.8 MG/DL (0.6-1.3); GFR ESTIMATE (CALCULATED) > 59 mL/min/ (58.99-99999); GLUCOSE 205 mg/dL (70-99); MAGNESIUM 1.6 mg/dl (1.3-2.7); POTASSIUM 4.4 MEQ/L (3.7-5.4); SODIUM 143 MEQ/L (136-147); TOTAL BILIRUBIN 0.5 MG/DL (0.0-1.0); TOTAL PROTEIN 5.3 G/DL (6.4-8.3); UREA NITROGEN (BUN) 32 mg/dL (9-23)
[2017-10-20] VITALS: BP 129/74
[2017-10-20 04:00] VITALS: BP 130/56
[2017-10-20 08:00] VITALS: BP 138/78
[2017-10-20 12:00] VITALS: BP 149/78
[2017-10-20 16:48] VITALS: BP 166/71
[2017-10-20 19:30] VITALS: BP 162/84
[2017-10-21 00:04] VITALS: BP 128/60
[2017-10-21 07:29] VITALS: BP 160/78
[2017-10-21 12:57] VITALS: BP 138/66
[2017-10-21 16:04] VITALS: BP 140/62
[2017-10-22] VITALS: BP 168/74
[2017-10-22 06:15] LABS: HEMOGLOBIN 10.1 G/DL (12.5-16.6); MCH 29.6 PG (29.0-34.0); MCHC 31.6 G/DL (30.0-36.0); MCV 93.8 FL (86-99); PLATELET COUNT 308 K/uL (156-360); RBC DIS.WIDTH-CV 15.9 % (11.8-14.6); RBC DIS.WIDTH-SD 53.2 % (39-53); RED BLOOD COUNT 3.41 M/uL (4.00-5.50); WHITE BLOOD COUNT 7.2 K/uL (4.1-10.2)
[2017-10-22 07:56] VITALS: BP 170/70
[2017-10-22 15:52] VITALS: BP 154/67
[2017-10-22 22:42] VITALS: BP 144/67
[2017-10-23 06:55] VITALS: BP 163/72
[2017-10-23 11:09] LABS: HEMATOCRIT 32.9 % (38.0-50.0); HEMOGLOBIN 10.1 G/DL (12.5-16.6); MCH 28.6 PG (29.0-34.0); MCHC 30.7 G/DL (30.0-36.0); MCV 93.2 FL (86-99); PLATELET COUNT 337 K/uL (156-360); RBC DIS.WIDTH-CV 15.6 % (11.8-14.6); RBC DIS.WIDTH-SD 52.3 % (39-53); RED BLOOD COUNT 3.53 M/uL (4.00-5.50); WHITE BLOOD COUNT 5.8 K/uL (4.1-10.2)
[2017-10-23 11:36] LABS: CHLORIDE 100 MEQ/L (99-109); CREATININE 0.7 MG/DL (0.6-1.3); GFR ESTIMATE (CALCULATED) > 59 mL/min/ (58.99-99999); GLUCOSE 218 mg/dL (70-99); MAGNESIUM 1.4 mg/dl (1.3-2.7); POTASSIUM 4.7 MEQ/L (3.7-5.4); SODIUM 138 MEQ/L (136-147); UREA NITROGEN (BUN) 21 mg/dL (9-23)
[2017-10-23 15:00] VITALS: BP 150/69
[2017-10-23 22:37] VITALS: BP 151/67
[2017-10-24 05:19] VITALS: BP 176/72
[2017-10-24 08:45] VITALS: BP 173/79
[2017-10-24 15:00] VITALS: BP 182/79
[2017-10-25 06:19] LABS: HEMATOCRIT 34.4 % (38.0-50.0); HEMOGLOBIN 10.8 G/DL (12.5-16.6); MCH 29.2 PG (29.0-34.0); MCHC 31.4 G/DL (30.0-36.0); PLATELET COUNT 395 K/uL (156-360); RBC DIS.WIDTH-CV 15.6 % (11.8-14.6); WHITE BLOOD COUNT 7.7 K/uL (4.1-10.2)
[2017-10-25 06:35] LABS: CHLORIDE 98 MEQ/L (99-109); CREATININE 0.7 MG/DL (0.6-1.3); GFR ESTIMATE (CALCULATED) > 59 mL/min/ (58.99-99999); GLUCOSE 225 mg/dL (70-99); MAGNESIUM 1.5 mg/dl (1.3-2.7); POTASSIUM 4.8 MEQ/L (3.7-5.4); SODIUM 137 MEQ/L (136-147); UREA NITROGEN (BUN) 20 mg/dL (9-23)
[2017-10-25 08:19] VITALS: BP 151/73
[2017-10-25 16:14] VITALS: BP 138/80
[2017-10-25 23:44] VITALS: BP 130/78
[2017-10-26 07:21] VITALS: BP 148/66
[2017-10-26 07:36] VITALS: BP 161/84
[2017-10-26 09:22] LABS: CHLORIDE 99 mEq/L (99-109); POTASSIUM 4.6 mEq/L (3.7-5.4); SODIUM 137 mEq/L (136-147)
[2017-10-26 09:24] LABS: GLUCOSE 215 mg/dL (70-99)
[2017-10-26 09:28] LABS: CREATININE 0.8 mg/dL (0.6-1.3); GFR ESTIMATE (CALCULATED) > 59 mL/min/ (58.99-99999)
[2017-10-26 09:29] LABS: UREA NITROGEN (BUN) 22 mg/dL (9-23)
[2017-10-26] MEDS ORDERED: SANTYL30 GM TP (13:07)
[2017-10-26] MEDS ORDERED: LEVEMIR100 UNIT/2 SC (13:07)
[2017-10-26 15:41] VITALS: BP 143/83
== END 2017-10-26 16:09 | DRG 870 ==
LOC: EME 13:26 → EDOF 14:51 → 4WEST 14:51 → ENRESERV 14:55 → 4WEST 16:13 → ENRESERV 10-20 11:21 → 4WEST 10-20 11:36 → 5EAST 10-20 13:07
PROVIDERS: Emergency Medicine; Hospitalist; Internal Medicine; Internal Medicine Critical Care Medicine; Internal Medicine Nephrology
PROC: 5A1955Z Respiratory Ventilation, Greater than 96 Consecutive Hours (ICD-10-PCS; principal; 2017-10-08)
PROC: 02HV33Z Insertion of Infusion Device into Superior Vena Cava, Percutaneous Approach (ICD-10-PCS; principal; 2017-10-08)
PROC: 0BH17EZ Insertion of Endotracheal Airway into Trachea, Via Natural or Artificial Opening (ICD-10-PCS; principal; 2017-10-08)
PROC: 0BH18EZ Insertion of Endotracheal Airway into Trachea, Via Natural or Artificial Opening Endoscopic (ICD-10-PCS; 2017-10-10)
DX: A41.4 Sepsis due to anaerobes (principal); R65.21 Severe sepsis with septic shock; J96.20 Acute and chronic respiratory failure, unspecified whether with hypoxia or hypercapnia; L89.621 Pressure ulcer of left heel, stage 1; A04.72 Enterocolitis due to Clostridium difficile, not specified as recurrent; N17.9 Acute kidney failure, unspecified; E86.0 Dehydration; L89.150 Pressure ulcer of sacral region, unstageable; E87.2 Acidosis; G82.54 Quadriplegia, C5-C7 incomplete; I48.2 Chronic atrial fibrillation; E11.40 Type 2 diabetes mellitus with diabetic neuropathy, unspecified; E11.22 Type 2 diabetes mellitus with diabetic chronic kidney disease; E11.21 Type 2 diabetes mellitus with diabetic nephropathy; E11.65 Type 2 diabetes mellitus with hyperglycemia; E78.5 Hyperlipidemia, unspecified; I48.0 Paroxysmal atrial fibrillation; Z93.1 Gastrostomy status; Z86.718 Personal history of other venous thrombosis and embolism; Z86.711 Personal history of pulmonary embolism; Z79.01 Long term (current) use of anticoagulants; Z98.1 Arthrodesis status; R13.10 Dysphagia, unspecified; J98.11 Atelectasis; Z87.891 Personal history of nicotine dependence; E83.51 Hypocalcemia; E87.6 Hypokalemia; E87.0 Hyperosmolality and hypernatremia; I12.9 Hypertensive chronic kidney disease with stage 1 through stage 4 chronic kidney disease, or unspecified chronic kidney disease; N18.3 Chronic kidney disease, stage 3 (moderate); N25.81 Secondary hyperparathyroidism of renal origin; G47.33 Obstructive sleep apnea (adult) (pediatric); J44.9 Chronic obstructive pulmonary disease, unspecified; N40.0 Benign prostatic hyperplasia without lower urinary tract symptoms; D64.9 Anemia, unspecified; Z79.4 Long term (current) use of insulin; G95.20 Unspecified cord compression
CPT/HCPCS: 31500; 36600; 71010; 71045; 74000; 76770; 80048; 80048 91; 80053; 80069; 81003; 82306; 82330; 82607; 82803; 82948; 83605; 83690; 83735; 83880; 84100; 84145 90; 84484; 85025; 85025 91; 85027; 85610; 85730; 86141; 86850; 86900; 86901; 86920; 87040; 87070; 87086; 87205; 87493; 87506; 87641; 93005; 94002; 94003; 94640; 94640 76; 94760; 94799; 99202; 99281; 99285; C1755; C9113; J0610; J0696; J1650; J1815; J2405; J2704; J3010; J3370; J3480; J7030; J7042; J7050; J7070; P9016; P9047; S0028; S0073